=== PATIENT | male | born 1935 | race Caucasian/White ===

== ENCOUNTER 2018-01-03 09:57 | Inpatient (IN) | payer MEDICARE ==
[2018-01-03 10:40] LABS: #Lymphocytes 0.7 thou/uL (1.20-3.40); #Monocytes 0.6 thou/uL (0.11-0.59); #Neutrophils 8.4 thou/uL (1.40-6.50); %Basophils 0.1 % (0.0-1.0); %Eosinophils 0.1 % (0.0-10.0); %Monocytes 6.6 % (0.0-10.0); %Neutrophils 86.2 % (42.0-75.0); Hemoglobin 13.6 g/dL (14.0-18.0); Mean Platelet Volume 9.2 fL (7.4-10.4); Platelet Count 159 thou/uL (130-400); RBC Distribution Width 12.6 % (11.5-14.5); Red Blood Cell (RBC) Count 4.39 mill/uL (4.70-6.10); White Blood Cell (WBC) Count 9.7 thou/uL (4.8-10.8)
[2018-01-03 11:00] LABS: ALT (SGPT) 24 U/L (8-55); AST (SGOT) 33 U/L (5-34); Albumin 4.2 g/dL (3.4-4.8); Alkaline Phosphatase 55 U/L (40-150); Anion Gap 15 mmol/L (10-20); BUN (Urea Nitrogen) 15 mg/dL (8.4-25.7); Bilirubin, Total 1.1 mg/dL (0.2-1.2); Calc. Creatinine Clearance 0 mL/min (70-130); Calcium 9.6 mg/dL (7.8-10.44); Carbon Dioxide 23 mmol/L (23-31); Chloride 97 mmol/L (98-107); Estimated GFR-MDRD 66; Globulin 3.3 g/dL (2.4-3.5); Glucose 157 mg/dL (83-110); Potassium 3.5 mmol/L (3.5-5.1); Protein, Total 7.5 g/dL (5.8-8.1); Sodium 131 mmol/L (136-145)
[2018-01-03] MEDS ORDERED: Acetaminophen 500 MG TAB ONE (11:36)
--- NOTE | 2018-01-03 11:46 | RAD ---
CHEST PA AND LATERAL: History: 82-year-old male with history of cough and fever. FINDINGS: Patchy alveolar parenchymal changes noted in the right lower lobe, evidence for right lower lobe pneu monia. Heart size is normal. The left lung is clear. IMPRESSION: Right lower lobe pneumonia. Follow up for complete clearing suggested. POS: [facility]
[2018-01-03] MEDS ORDERED: Azithromycin 500 MG VIAL ONE (13:19)
[2018-01-03] MEDS ORDERED: cefTRIAXone\\ROCEPHIN 2 GM VIAL ONE (13:19)
[2018-01-03 13:23] LABS: Bilirubin Small (Negative); Blood, Urine Small (Negative); Clarity CLOUDY (Clear); Glucose, Urine (Dipstick) 100 mg/dL (Negative); Leukocyte Trace (Negative); Nitrite Negative (Negative); Protein, Urine (Dipstick) 100 mg/dL (Neg-Trace); Specific Gravity, Urine 1.031 (1.002-1.036); pH, Urine 5.5 (5.0-9.0)
[2018-01-03 13:28] LABS: Bacteria/HPF None Seen HPF (None Seen)
[2018-01-03 13:31] LABS: Pathc Cast-AUWi Flag 7.41 (0-2.49)
[2018-01-03 13:36] LABS: Hyaline Casts/LPF 0-3 HYALINE CAST LPF (0-3 Hyaline); Renal Epithelial None Seen HPF (0-3); Transitional Epithelial NONE SEEN HPF (0-3)
[2018-01-03 13:37] LABS: Manual Microscopic Reviewed? No Path Casts Seen
[2018-01-03] MEDS ORDERED: Ondansetron ODT 4 MG TAB SL PRN (13:42)
[2018-01-03] MEDS ORDERED: Acetaminophen 325 MG TAB PO PRN (13:42)
[2018-01-03] MEDS ORDERED: Ondansetron HCl/PF 4 MG/2 ML Vial IVP PRN (13:42)
[2018-01-03 14:00] VITALS: BMI 23.1
[2018-01-03] MEDS ORDERED: Guaifenesin DM 100-10/5 ML UDCUP PO PRN (14:27)
[2018-01-03] MEDS: Azithromycin 500 MG in Sodium Chloride 0.9% 250 ML 250 ML IVPB SCH (14:47)
[2018-01-03] MEDS: Sodium Chloride 0.9% 1,000 ML IV SCH (15:30)
[2018-01-03] MEDS: Ibuprofen 200 MG TAB PO PRN (17:51)
--- NOTE | 2018-01-03 18:51 | HP ---
REASON FOR ADMISSION: Pneumonia. HISTORY OF PRESENT ILLNESS: The patient gives history of having fever with chills which started early this morning. His measured his temperature, it was 104. On arrival in the ER, had a temperature of 100.2 degrees. He has been having dry coughing spells and did not feel well yesterday and had gone to see Dr. Hawthorne his primary care physician. He apparently had an x-ray done, which was read today. He was told he has right lung pneumonia and was asked to come to the ER. He was given Augmentin, which he took 3 tablets. He has no complaints of urinary urgency or frequency. No complaints of chest pain, palpitation, PND or orthopnea. PAST MEDICAL AND SURGICAL HISTORY: History of left knee replacement, bilateral carpal tunnel surgery, low back pain due to sciatica stress test done [address] Hawthorne[address] office, which was treadmill, stress test was negative as far as patient knows. Completed treatment for hepatitis C 15 years back. CURRENT MEDICATIONS: Augmentin 875 mg p.o. twice daily started from yesterday for pneumonia. ALLERGIES: No known drug allergies. PERSONAL HISTORY: Does not abuse alcohol or drugs, smokes. He is currently smoking half pack a day and has been doing so for nearly 50 years or so. Lives with his . FAMILY HISTORY: Mother lived up to 101 years. Father lived up to 95 years. CODE STATUS. Please CODE STATUS IS FULL. Power of dumper bulk system is his . REVIEW OF SYSTEMS: The following complete review of systems was negative, unless otherwise mentioned in the HPI or below: Constitutional: Weight loss or gain, ability to conduct usual activities. Skin: Rash, itching. Eyes: Double vision, pain. ENT/Mouth: Nose bleeding, neck stiffness, pain, tenderness. Cardiovascular: Palpitations, dyspnea on exertion, orthopnea. Respiratory: Shortness of breath, wheezing, cough, hemoptysis, fever or night sweats. Gastrointestinal: Poor appetite, abdominal pain, heartburn, nausea, vomiting, constipation, or diarrhea. Genitourinary: Urgency, frequency, dysuria, nocturia. Musculoskeletal: Pain, swelling. Neurologic/Psychiatric: Anxiety, depression. Allergy/Immunologic: Skin rash, bleeding tendency. PHYSICAL EXAMINATION: GENERAL: The patient is an 82-year-old male who is currently not in any acute distress. VITAL SIGNS: Blood pressure 104/64, pulse 96 per minute, respiratory rate 18 per minute, temperature 100.2 degrees Fahrenheit, saturating 94% on room air. NECK: Supple, no elevated JVD. HEENT: Eyes: Extraocular muscles intact. Pupils reacting to light. Oral cavity mucous membranes are moist. No exudates or congestion. CARDIOVASCULAR: S1, S2 heard. Regular rhythm. RESPIRATORY: Air entry 1+ bilaterally. No rales or rhonchi. ABDOMEN: Soft, bowel sounds heard. No tenderness, rigidity or guarding. EXTREMITIES: No peripheral edema or calf tenderness. VASCULAR SYSTEM: Peripheral pulses 1+ bilateral, no ischemic ulcerations or gangrene. CENTRAL NERVOUS SYSTEM: No gross focal deficits seen. Patient is alert, awake , and oriented well. PSYCHIATRIC: The patient's mood is euthymic. No hallucinations or delusions. LABORATORY AND X-RAY FINDINGS: Chest x-ray done shows right lower lobe pneumonia. UA shows trace leukoesterase with 4-6 wbc's. Sodium 131, BUN 15, creatinine 1.0, glucose 157. White count of 9, H&H 13 and 40, platelet count is 159, with 86% neutrophils. CLINICAL IMPRESSION AND PLAN: The patient will be admitted to medical floor for right lung pneumonia. He will be on ceftriaxone and Zithromax. The patient also has chronic history of smoking for nearly 50 years or more. He will be on DuoNebs q.6 hourly and normal saline at 60 mL per hour for 24 hours. We will add Pepcid 20 mg daily. The patient likely needs 4-5 doses of IV antibiotics prior to going home. He probably will need outpatient appointment with Pulmonology in view of his chronic smoking habit and right lung pneumonia for followup x-ray to see for complete resolution if not further workup towards the same. MTDD
[2018-01-03] MEDS: Docusate 100 MG CAP PO SCH (20:47)
[2018-01-04] MEDS: Acetaminophen 325 MG TAB PO PRN ×4 (00:43→17:29)
[2018-01-04 05:29] LABS: #Lymphocytes 0.5 thou/uL (1.20-3.40); #Monocytes 0.6 thou/uL (0.11-0.59); #Neutrophils 7.7 thou/uL (1.40-6.50); %Eosinophils 0.1 % (0.0-10.0); %Lymphocytes 5.7 % (21.0-51.0); %Monocytes 6.5 % (0.0-10.0); %Neutrophils 87.6 % (42.0-75.0); Hemoglobin 12.2 g/dL (14.0-18.0); Mean Corpuscular HGB CONC 34.4 g/dL (32.0-36.0); Mean Corpuscular Hemoglobin 31.6 pg (27.0-31.0); Mean Corpuscular Volume 91.8 fl (80.0-94.0); Mean Platelet Volume 9.2 fL (7.4-10.4); Platelet Count 153 thou/uL (130-400); RBC Distribution Width 12.9 % (11.5-14.5); Red Blood Cell (RBC) Count 3.87 mill/uL (4.70-6.10); White Blood Cell (WBC) Count 8.8 thou/uL (4.8-10.8)
[2018-01-04 05:52] LABS: Anion Gap 10 mmol/L (10-20); BUN (Urea Nitrogen) 13 mg/dL (8.4-25.7); Calc. Creatinine Clearance 71 mL/min (70-130); Calcium 8.9 mg/dL (7.8-10.44); Carbon Dioxide 26 mmol/L (23-31); Chloride 104 mmol/L (98-107); Estimated GFR-MDRD Greater than 90; Glucose 132 mg/dL (83-110); Potassium 3.6 mmol/L (3.5-5.1); Sodium 136 mmol/L (136-145)
[2018-01-04] MEDS: Sodium Chloride 0.9% 1,000 ML IV SCH (08:11)
[2018-01-04] MEDS: Enoxaparin Sodium 40 MG/0.4 ML SYRINGE SC SCH (08:33)
[2018-01-04] MEDS: Docusate 100 MG CAP PO SCH ×2 (08:33→20:34)
[2018-01-04] MEDS ORDERED: Famotidine 20 MG TAB PO SCH ×2 (09:00→21:00)
[2018-01-04] MEDS ORDERED: Prevnar 13-Val Conj/PF 0.5 ML SYRINGE IM ONE (09:00)
--- NOTE | 2018-01-04 10:41 | CT ---
CHEST CT WITHOUT COTNRAST: HISTORY: Pain. Fever. Smoker. Evaluate for mass. COMPARISON: None. CORRELATION: Chest radiograph 01/03/18. TECHNIQUE: Noncontrast chest CT is performed in the axial plane. Coronal reformatted images are submitted for i nterpretation. FINDINGS: Limited evaluation of the mediastinum due to the lack of IV contrast. No mass, lymphadenopathy, or h ematoma. Heart size is within normal limits. No significant pericardial fluid. Visualized aorta roy s a normal caliber. No periaortic fat stranding. The visualized upper solid organs are unremarkable. No paraspinal masses or hematoma. Trachea and central bronchi are patent. Adequate aeration of the left and right upper lobes. Middle lobe is also adequately aerated. Linear opacity in the left lower lobe due to scar or atelectasis. Ground-glass opacity with consolidation in the right lower lobe. Air bronchograms are present. Pne umonia is favored. Given the patient's history, followup imaging to ensure resolution is recommended . The area of consolidation measures 7.5 x 5.6 cm. No pneumothorax. IMPRESSION: Right lower lobe consolidation with air bronchograms, favored to be due to pneumonia until proven oth erwise. Continued surveillance is recommended. Additional ground-glass opacities peripheral to the area of consolidation likely represent edema/infiltrate. POS: [facility]
--- NOTE | 2018-01-04 11:02 | PDOC.PN ---
- Subjective Encounter Start Date: 01/04/18 Encounter Start Time: 09:30 Subjective: breathing better, no sob -: has cough+ mostly dry - Objective Resuscitation Status: Resuscitation Status FULL:Full Resuscitation MAR Reviewed: Yes Vital Signs & Weight: Vital Signs (12 hours) Temp Pulse Resp BP Pulse Ox 01/04/18 09:15 98.8 F 01/04/18 08:00 102 F H 100 16 93 L 01/04/18 07:39 102 F H 100 16 129/65 93 L 01/04/18 06:13 80 14 95 01/04/18 04:00 98.9 F 80 20 102/65 95 01/04/18 00:45 99.5 F 01/04/18 00:23 88 12 01/04/18 00:00 99.7 F H 92 20 147/72 H 96 Weight Weight 152 lb 4.8 oz I&O: 01/03/18 01/04/18 01/05/18 06:59 06:59 06:59 Intake Total 2121 Output Total 400 Balance 1721 Result Diagrams: 01/04/18 03:40 01/04/18 03:40 Phys Exam - Physical Examination HEENT: PERRLA, moist MMs Neck: no JVD, supple Respiratory: no wheezing, no rales Cardiovascular: RRR, no significant murmur Gastrointestinal: soft, non-tender, positive bowel sounds Musculoskeletal: no edema, pulses present Neurological: non-focal, moves all 4 limbs Psychiatric: normal affect, A&O x 3 Dx/Plan (1) PNA (pneumonia) Code(s): J18.9 - PNEUMONIA, UNSPECIFIED ORGANISM Status: Acute Qualifiers: Laterality: right Lung location: lower lobe of lung Comment: cap (2) COPD (chronic obstructive pulmonary disease) Status: Chronic Qualifiers: COPD type: chronic bronchitis Chronic bronchitis type: unspecified Qualified Code(s): J42 - Unspecified chronic bronchitis (3) Tobacco abuse Code(s): Z72.0 - TOBACCO USE Status: Chronic (4) Chronic back pain Code(s): M54.9 - DORSALGIA, UNSPECIFIED; G89.29 - OTHER CHRONIC PAIN Status: Chronic Qualifiers: Back pain location: low back pain - Plan is on ceftriaxone and zithromax -: nebs prn -: had tmax of 102 last 24hrs -: CT chest results reviewed * . Review of Systems - Medications/Allergies Allergies/Adverse Reactions: Allergies Allergy/AdvReac Type Severity Reaction Status Date / Time No Known Allergies Allergy Unverified 05/10/15 12:13 Medications: Current Medications Acetaminophen (Tylenol) 650 mg PO Q4H PRN PRN Reason: Headache/Fever or Pain Last Admin: 01/04/18 08:33 Dose: 650 mg Hydrocodone Bitart/Acetaminophen (Bennett 7.5/325) 1 tab PO Q6HR PRN PRN Reason: Moderate Pain (4-6) Albuterol/Ipratropium (Duoneb) 3 ml NEB [id number] [facility] Last Admin: 01/04/18 06:13 Dose: 3 ml Aspirin (Aspirin Chewable) 81 mg PO DAILY [facility] Last Admin: 01/04/18 08:33 Dose: 81 mg Docusate Sodium (Colace) 100 mg PO BID [facility] Last Admin: 01/04/18 08:33 Dose: 100 mg Enoxaparin Sodium (Lovenox) 40 mg SC 0900 [facility] Last Admin: 01/04/18 08:33 Dose: 40 mg Famotidine (Pepcid) 20 mg PO BID [facility] Guaifenesin/Dextromethorphan (Robitussin Dm) 15 ml PO Q4H PRN PRN Reason: Cough Azithromycin 500 mg/ Sodium (Chloride) 250 mls @ 250 mls/hr IVPB Q24HR [facility] Last Admin: 01/03/18 14:47 Dose: Not Given Ceftriaxone Sodium 2 gm/ (Sodium Chloride) 100 mls @ 200 mls/hr IVPB Q24HR [facility] Sodium Chloride (Normal Saline 0.9%) 1,000 mls @ 60 mls/hr IV [id number] [facility] Last Admin: 01/04/18 08:11 Dose: 1,000 mls Ibuprofen (Motrin) 400 mg PO TID PRN PRN Reason: fever >100 Last Admin: 01/03/18 17:51 Dose: 400 mg
[2018-01-04] MEDS: cefTRIAXone\\ROCEPHIN 2 GM in Sodium Chloride 0.9% 100 ML IVPB SCH (12:47)
[2018-01-04] MEDS: Azithromycin 500 MG in Sodium Chloride 0.9% 250 ML 250 ML IVPB SCH (14:55)
[2018-01-04] MEDS ORDERED: Sodium Chloride 0.9% 1,000 ML IV SCH (17:05)
[2018-01-04] MEDS: Ibuprofen 200 MG TAB PO PRN (19:04)
[2018-01-04] MEDS: HYDROcodone/Acetaminophen 7.5/325 mg Tablet PO PRN (20:37)
[2018-01-04 20:39] LABS: Legionella Urinary Ag POSITIVE (Negative); Strep pneumo Urine Ag NEGATIVE (NEGATIVE)
--- NOTE | 2018-01-04 22:23 | CON ---
DATE OF CONSULTATION: 01/04/2018 SERVICE: Pulmonary Medicine. REASON FOR CONSULTATION: Pneumonia. HISTORY OF PRESENT ILLNESS: The patient is an 82-year-old Hebrew male with past medical history significant for essentially nothing. He is in his usual state of health until roughly 5 days prior to admission. On Saturday, he woke up and everything was fine, but as the day progressed, things started feeling a little bit off. He did not have any specific way of feeling bad, but just knew that he felt a little lousy. As the week progressed, he started having onset of some pleuritic type of chest discomfort, cough, and fevers that went up to 104. His primary care physician obtained a chest x-ray. It was abnormal, so he was started on some Augmentin. He took a total of 3 pills. He was also told to go to the emergency department. In the emergency department, chest x- ray confirmed the pneumonia. He was started on appropriate antibiotics. Over the last 24 hours, the patient has had a significant improvement in symptoms. His fever profile is improving. He denies any current fevers, chills, nausea, vomiting, or chest discomfort. He denies having any shortness of breath. He has a cough, but he is not bringing any sputum up. Otherwise, he has been in excellent health. He only has a little bit of sciatic discomfort, for which he takes p.r.n. [place] for. He typically needs a dose no more than 2-3 times per week. He denies having any significant weight changes, hemoptysis, or night sweats prior to 1 week ago. PAST MEDICAL HISTORY: 1. Sciatic nerve pain. 2. History of chronic hepatitis C, status post therapy 15 years ago. PAST SURGICAL HISTORY: 1. Carpal tunnel surgery, bilateral. 2. Left knee replacement. SOCIAL HISTORY: He drinks alcohol occasionally. He has a greater than 50-pack- year history of smoking, but has decreased that habit over the last several years and discontinued the habit altogether roughly one 1 month ago. He did not have any specific reason to quit smoking, but just decided that at this point, he did not want that to be part of his life any longer. He currently lives with his . He denies any illicit drugs. He has no exposure to chemicals, dust, asbestos, or tuberculosis. He owns a local restaurant. FAMILY HISTORY: Noncontributory. ALLERGIES: No known drug allergies. MEDICATIONS: List of his inpatient medications were reviewed. Very small updates were made. REVIEW OF SYSTEMS: General, head, ears, eyes, nose, throat, cardiovascular, respiratory, GI, , musculoskeletal, neurologic, and skin is negative except as mentioned in HPI. PHYSICAL EXAMINATION: VITAL SIGNS: Afebrile currently with a temperature of 99.7. His temperature profile seems to be improving as on presentation, he had a 104 fever and the spikes are decreasing. Pulse 81, blood pressure 106/68, respirations 16, saturation 94% on room air. GENERAL: The patient is awake and alert, in no apparent distress. LUNGS: Decent air entry. I do not appreciate rhonchi. There is no prolonged expiratory phase, wheezing, rhonchi, or crackles. HEART: Normal rate, regular. ABDOMEN: Soft, nontender, nondistended. Bowel sounds are positive. MUSCULOSKELETAL: No cyanosis or clubbing. There is no pitting in the bilateral lower extremities. NEUROLOGIC: Grossly nonfocal. LABORATORY DATA: WBC 8.8, hemoglobin 12.2, platelets 153,000. Neutrophil count is 86%. Basic metabolic profile and liver function studies are unremarkable. Lactate is negative. Potassium is 3.6. Urinalysis is positive for minimal glycosuria and proteinuria. Ketones are also present. There is not many white blood cells, but there are some red blood cells. Trace leukocyte esterase is present, but nitrites are unremarkable. Blood cultures x2 remain negative. IMAGING: CT of the chest demonstrates a right lower lobe pulmonary infiltrate. It is fairly dense at one point. I see air bronchograms, but some of it has paucity of air bronchograms giving it a possibility of having underlying mass. No evidence of significant mediastinal lymphadenopathy is present on this noncontrasted film. ASSESSMENT: 1. Community-acquired pneumonia. 2. Sepsis. 3. Proteinuria, minimal. 4. Hematuria, minimal DISCUSSION AND PLAN: The patient is on appropriate coverage for community- acquired organisms. This will be continued until he breaks his fever profile. After that, we will change him over to an equal p.o. regimen. He will get a chest x-ray on the day of discharge as there was a very small rim of pleural effusion. I would like to make certain that this does not turn into a more aggressive inflammatory condition. Ultimately, he will need a repeat CT scan in 6 weeks. He is going to [place] from January until early February. This will be perfect for a timeline. When he returns from [place], we will need to get the repeat CT scan. I will see him in clinic at that time. I would like to repeat a urinalysis in the outpatient setting to make certain that his hematuria resolves. Pulmonary will continue to follow along. 70 minutes have been devoted to this patient in various activities. I personally reviewed all imaging studies and laboratory data noted within this document. For fifty percent of this time, I was interacting with the patient at the bedside or coordinating care with the care team. For the remainder of the time I was immediately available to the patient in the hospital unit. MARAH
[2018-01-05] MEDS: Melatonin 3 MG TAB PO PRN ×2 (02:09→20:42)
[2018-01-05] MEDS: Acetaminophen 325 MG TAB PO PRN ×2 (07:39→16:48)
[2018-01-05] MEDS: Enoxaparin Sodium 40 MG/0.4 ML SYRINGE SC SCH (07:39)
[2018-01-05] MEDS: Docusate 100 MG CAP PO SCH ×2 (07:39→20:42)
--- NOTE | 2018-01-05 10:52 | PDOC.PN ---
- Subjective Encounter Start Date: 01/05/18 Encounter Start Time: 08:40 Subjective: is able to bring up some sputum now -: no sob, fever is better - Objective Resuscitation Status: Resuscitation Status FULL:Full Resuscitation MAR Reviewed: Yes Vital Signs & Weight: Vital Signs (12 hours) Temp Pulse Resp BP BP Pulse Ox 01/05/18 07:50 99.4 F 89 18 94 L 01/05/18 07:18 99.4 F 89 18 128/74 94 L 01/05/18 06:06 75 14 96 01/05/18 04:56 97.8 F 84 20 126/82 96 01/05/18 04:15 98.4 F 88 16 133/69 95 01/05/18 00:17 67 12 01/05/18 00:00 98.1 F 67 20 120/73 95 Weight Admit Weight 152 lb Weight 152 lb 4.8 oz I&O: 01/04/18 01/05/18 01/06/18 06:59 06:59 06:59 Intake Total 2121 3020 Output Total 400 200 Balance 1721 2820 Result Diagrams: 01/04/18 03:40 01/04/18 03:40 Phys Exam - Physical Examination HEENT: PERRLA, moist MMs Neck: no JVD, supple Respiratory: no wheezing, no rales Cardiovascular: RRR, no significant murmur Gastrointestinal: soft, non-tender, positive bowel sounds Musculoskeletal: no edema, pulses present Neurological: non-focal, moves all 4 limbs Psychiatric: normal affect, A&O x 3 Dx/Plan (1) PNA (pneumonia) Code(s): J18.9 - PNEUMONIA, UNSPECIFIED ORGANISM Status: Acute Qualifiers: Laterality: right Lung location: lower lobe of lung Comment: cap (2) COPD (chronic obstructive pulmonary disease) Status: Chronic Qualifiers: COPD type: chronic bronchitis Chronic bronchitis type: unspecified Qualified Code(s): J42 - Unspecified chronic bronchitis (3) Tobacco abuse Code(s): Z72.0 - TOBACCO USE Status: Chronic (4) Chronic back pain Code(s): M54.9 - DORSALGIA, UNSPECIFIED; G89.29 - OTHER CHRONIC PAIN Status: Chronic Qualifiers: Back pain location: low back pain - Plan is on ceftriaxone and zithromax -: duonebs -: tmax of 99 last 24hrs -: legionella Ag+ in urine -: to amb as tolerated, likely dc plan in am if stable * . Review of Systems - Medications/Allergies Allergies/Adverse Reactions: Allergies Allergy/AdvReac Type Severity Reaction Status Date / Time No Known Allergies Allergy Unverified 05/10/15 12:13 Medications: Current Medications Acetaminophen (Tylenol) 650 mg PO Q4H PRN PRN Reason: Headache/Fever or Pain Last Admin: 01/05/18 07:39 Dose: 650 mg Hydrocodone Bitart/Acetaminophen ([place] 7.5/325) 1 tab PO Q6HR PRN PRN Reason: Moderate Pain (4-6) Last Admin: 01/04/18 20:37 Dose: 1 tab Albuterol/Ipratropium (Duoneb) 3 ml NEB [id number] [facility] Last Admin: 01/05/18 06:06 Dose: 3 ml Aspirin (Aspirin Chewable) 81 mg PO DAILY [facility] Last Admin: 01/05/18 07:39 Dose: 81 mg Docusate Sodium (Colace) 100 mg PO BID [facility] Last Admin: 01/05/18 07:39 Dose: Not Given Enoxaparin Sodium (Lovenox) 40 mg SC 0900 [facility] Last Admin: 01/05/18 07:39 Dose: 40 mg Azithromycin 500 mg/ Sodium (Chloride) 250 mls @ 250 mls/hr IVPB Q24HR [facility] Last Admin: 01/04/18 14:55 Dose: 250 mls Ceftriaxone Sodium 2 gm/ (Sodium Chloride) 100 mls @ 200 mls/hr IVPB Q24HR [facility] Last Admin: 01/04/18 12:47 Dose: 100 mls Sodium Chloride (Normal Saline 0.9%) 1,000 mls @ 0 mls/hr IV .Q0M [facility] PRN Reason: KVO Ibuprofen (Motrin) 400 mg PO TID PRN PRN Reason: fever >100 Last Admin: 01/04/18 19:04 Dose: 400 mg Melatonin (Melatonin) 3 mg PO HS PRN PRN Reason: Insomnia Last Admin: 01/05/18 02:09 Dose: 3 mg Pantoprazole Sodium (Protonix) 40 mg PO DAILY [facility] Last Admin: 01/05/18 09:48 Dose: 40 mg Sodium Chloride (Flush - Normal Saline) 10 ml IVF Q12HR [facility] Last Admin: 01/05/18 08:06 Dose: Not Given Sodium Chloride (Flush - Normal Saline) 10 ml IVF PRN PRN PRN Reason: Saline Flush
--- NOTE | 2018-01-05 12:35 | PRG ---
DATE OF SERVICE: 01/05/2018 SERVICE: Pulmonary Medicine. INTERVAL HISTORY: The patient is doing fantastic from a respiratory standpoint. He denies any chest pain, nausea, vomiting, shortness of breath. His appetite is coming back to him. His fever profile has improved. He had a little fever yesterday evening shortly after I left him. PHYSICAL EXAMINATION: VITAL SIGNS: Currently afebrile with temperature of 99.4, pulse 89, blood pressure 128/74, respirations 18, and saturation 96% on room air. GENERAL: The patient is awake, alert, no apparent distress. LUNGS: Decent air entry. There is no prolonged expiratory phase or wheezing. I do not appreciate crackles or rhonchi. HEART: Normal rate, regular. ABDOMEN: Soft, nontender, and nondistended. Bowel sounds are positive. MUSCULOSKELETAL: No cyanosis or clubbing. No pitting in the bilateral lower extremities. NEUROLOGIC: Grossly nonfocal. LABORATORY DATA: Urine legionella antigen is positive. Strep pneumonia antigen is unremarkable. ASSESSMENT: 1. Community-acquired pneumonia secondary to Legionella. 2. Sepsis. 3. Proteinuria, minimal. 4. Hematuria, minimal. PLAN: We will convert him over to p.o. medications starting tomorrow morning since his temperature profile is clearly improving. He will get one more IV dose today. I will repeat a chest x-ray tomorrow morning. If there is no pleural effusion and he is clinically improved, he will be stable for discharge from the hospital. I would like for him to have a total duration of 10 days of the azithromycin because of the severity/density of the infiltrate. He can have a total of 5 days of penicillin/cephalosporin combination. He will need to inspect his equipment that has water/ice to ensure there is no colonization with Legionella. He will need to follow up with me in clinic in 6 weeks with a preclinic CT of the chest and urinalysis, so that we can prove that the proteinuria, hematuria, and infiltrate have resolved. MARAH
[2018-01-05] MEDS: cefTRIAXone\\ROCEPHIN 2 GM in Sodium Chloride 0.9% 100 ML IVPB SCH (13:09)
[2018-01-05] MEDS: Azithromycin 500 MG in Sodium Chloride 0.9% 250 ML 250 ML IVPB SCH (14:37)
[2018-01-05] MEDS: Cefdinir 300 MG CAP PO SCH (20:42)
[2018-01-06] MEDS: HYDROcodone/Acetaminophen 7.5/325 mg Tablet PO PRN (01:37)
[2018-01-06] MEDS: Cefdinir 300 MG CAP PO SCH (08:08)
[2018-01-06] MEDS: Docusate 100 MG CAP PO SCH (08:09)
[2018-01-06] MEDS: Enoxaparin Sodium 40 MG/0.4 ML SYRINGE SC SCH (08:10)
[2018-01-06] MEDS ORDERED: Azithromycin 250 MG TAB PO SCH (09:00)
[2018-01-06 09:42] LABS: Mean Corpuscular HGB CONC 34.1 g/dL (32.0-36.0); Mean Corpuscular Hemoglobin 31.1 pg (27.0-31.0); Mean Corpuscular Volume 91.2 fl (80.0-94.0); Mean Platelet Volume 8.6 fL (7.4-10.4); Platelet Count 230 thou/uL (130-400); RBC Distribution Width 13.2 % (11.5-14.5); Red Blood Cell (RBC) Count 3.87 mill/uL (4.70-6.10); White Blood Cell (WBC) Count 7.5 thou/uL (4.8-10.8)
[2018-01-06 09:43] LABS: Anion Gap 13 mmol/L (10-20); BUN (Urea Nitrogen) 7 mg/dL (8.4-25.7); Calc. Creatinine Clearance 85 mL/min (70-130); Calcium 9.3 mg/dL (7.8-10.44); Carbon Dioxide 21 mmol/L (23-31); Chloride 104 mmol/L (98-107); Estimated GFR-MDRD Greater than 90; Glucose 114 mg/dL (83-110); Potassium 3.4 mmol/L (3.5-5.1); Sodium 135 mmol/L (136-145)
--- NOTE | 2018-01-06 10:03 | RAD ---
TWO VIEWS CHEST: Comparison: 01-03-18 History: Follow up infiltrate. FINDINGS: Worsening opacification of the right lower lobe. Stable aeration left lung. Stable configuration of c ardiac silhouette. IMPRESSION: Worsening right lower lobe pneumonia. POS: [facility]
[2018-01-06 11:05] VITALS: BP 157/80; TEMP 98.6
[2018-01-06 12:14] LABS: Band 16 % (5-11); Lymphocytes 14 % (21-51); MDiff Complete? YES; Monocytes 9 % (0-10); Neutrophil 58 % (42-75); PLT Morphology Comment Appears Adequate; Polychromasia SLIGHT = 2-3 cells (100X) (0-2/hpf); Reactive Lymphocytes 3 % (0-10)
--- NOTE | 2018-01-06 12:29 | PDOC.EVN ---
Event Note - Event Note Event Note: DC SUMMARY #[id number]
--- NOTE | 2018-01-06 15:38 | PRG ---
DATE OF SERVICE: 01/06/2018 SUBJECTIVE: Mr. Thrasher says he is ready to go home. He looks actually quite well. OBJECTIVE: VITAL SIGNS: He is afebrile, heart rate 81, respiratory rate 16, oximetry is 93 on room air. LUNGS: Clear. HEART: Regular rhythm. ABDOMEN: Soft. Chest radiograph shows ongoing infiltrate in his right lower lobe. He has only been here 2 days, so I would expect his infiltrate to get worse before he got better. IMPRESSION: Pneumonia with a positive Legionella pneumophila and urinary antigen. Plan per Dr. Pollo crump's recommendations and has noted yesterday. He is stable to be discharged from the hospital. Fro m my perspective, he will need to follow closely with Dr. Ramos as per his recommendation and has n oted yesterday.
--- NOTE | 2018-01-06 23:00 | DIS ---
DATE OF ADMISSION: 01/03/2018 DATE OF DISCHARGE: 01/06/2018 ADMITTING DIAGNOSES: 1. Pneumonia. 2. History of osteoarthritis. 3. History of hypertension. 4. Back pain. DISCHARGE DIAGNOSES: 1. Pneumonia, stable. 2. History of osteoarthritis. 3. History of back pain, stable. HOSPITAL COURSE: This is an 82-year-old male who was admitted to Internal Medicine team after having fevers of 104 degrees at home. After arrival in the ER, the patient apparently had fevers of 100.2. The patient was diagnosed with right lobar pneumonia, admitted to Internal Medicine team and also f ollowed by pulmonary physicians. The patient was started on IV antibiotics during his stay in the [facility]. The patient, of note, when admitted and did not have a high white count; however, did have f saroj. Patient's rest of her laboratory workup was within acceptable limits. The patient's UA did i ndicate that he had a significant amount of protein and glucosuria as well as some bilirubin. The connie hunt Legionella pneumophila antibody antigen was positive. The patient was started on appropriate c ourse of regimen with antibiotics, followed very closely by Pulmonary and Internal Medicine team. At point in time of discharge, the patient was deemed stable for discharge from a Pulmonary as well as Internal Medicine perspective. Given prescriptions for azithromycin 500 mg daily to be taken for 10 days as well as Omnicef to be taken for a total of 3 more days. [facility] would have gotten a total of 5-day therapy. The patient was to follow up with his P CP and Pulmonary doctor within 5-7 days. The patient stated that he was ready to go home. The patie nt was cleared from Pulmonary Medicine for discharge, and case and plan was discussed with family as well as the patient at length. The patient was made aware that he did have a fever at 5 p.m. the day prior to discharge and stated that he still wanted to go home. DISPOSITION: Home. CONDITION: Stable. PROGNOSIS: Guarded. ACTIVITY: As tolerated with assistance as appropriate. MEDICATIONS: See MAR. Prescriptions given for azithromycin and Omnicef. DIET: Low fat, low calorie, high fiber diet. Again, case and plan discussed with the patient and family at length. They understand and agreed wit h the above plan.
--- NOTE | 2018-01-08 17:02 | PQF ---
LAINA HANSON VINAYA KUMAR MD [id number] CLINICAL DOCUMENTATION CLARIFICATION FORM: POST DISCHARGE Addendum to original discharge summary date: ____ Late entry note date: __ DATE: 01/08/18 ATTN: Please exercise your independent, professional judgment in responding to the clarification form. Clinical indicators are provided on the bottom of this form for your review Please check appropriate box(es): [ x ] Sepsis due to: (Pna, UTI, gangrenous gall bladder, etc.) pna Due to: [ ] Device (please specify) [ ] Implant [ ] Graft [ ] Infusion [ ] SIRS due to non-infectious process (please specify etiology) [ ] with organ dysfunction [ ] without organ dysfunction [ ] Severe sepsis with acute organ dysfunction of: (Examples: respiratory failure, encephalopathy, acute kidney failure, other) [ ] Septic Shock [ ] Localized infection without sepsis [ ] Ruled out [ ] Other diagnosis [ ] Unable to determine In addition, please specify: Present on Admission (POA): [ ] Yes [ ] No [ ] Unable to determine For continuity of documentation, please document condition throughout progress notes and discharge summary. Thank You. CLINICAL INDICATORS - SIGNS / SYMPTOMS / LABS Fever or hypothermia (<96.8 F/36 C or > 100.4 F/38C) WBC count (>12,000/mm^4 or <4000/mm^3 or 10% neuts, 10% bands) RISK FACTORS Pneumonia TREATMENTS: IV antibiotics - broad spectrum MTDD
== END 2018-01-06 12:42 | disposition home or self-care (01) | DRG 871 ==
LOC: ERS 09:57 → T4-A 12:21
PROVIDERS: ADMIT Internal Medicine; ATTEND Internal Medicine
DX: A41.9 Sepsis, unspecified organism (principal); J18.9 Pneumonia, unspecified organism; I10 Essential (primary) hypertension; Z79.2 Long term (current) use of antibiotics; F17.210 Nicotine dependence, cigarettes, uncomplicated; Z96.651 Presence of right artificial knee joint; M54.30 Sciatica, unspecified side; R31.9 Hematuria, unspecified; R80.9 Proteinuria, unspecified; J44.9 Chronic obstructive pulmonary disease, unspecified
CPT/HCPCS: 36415; 71046; 71250; 80048; 80053; 81003; 81015; 83605; 85007; 85025; 85027; 87040; 87899; 94640; 94760; 96361; 96365; A4216; J0456; J0696; J1650; J7050; J7620

== ENCOUNTER 2018-02-19 09:07 | Outpatient (CLI) | payer MEDICARE ==
[2018-02-19 09:26] LABS: Estimated GFR-MDRD - POC Greater than 90
--- NOTE | 2018-02-19 11:26 | CT ---
CONTRAST ENHANCED CT CHEST: HISTORY: Patient with pneumonia in December 2017. Not getting clinically better. TECHNIQUE: A contrast enhanced CT of the chest is performed. FINDINGS: The area of consolidation in the right lower lobe has completely resolved. Some minimal of scarring remain. No definite evidence of air space opacity is seen. A small hiatal hernia is seen. No evidence of mediastinal, axillary, or hilar lymphadenopathy is seen. A cortical cyst is seen in t he right kidney. A small hiatal hernia is seen. IMPRESSION: Resolved right lower lobe pneumonia. POS: [facility]
[2018-02-19] MEDS ORDERED: Iopamidol 370 76% 100 ML VIAL ONE (12:53)
== END 2018-02-19 09:08 | disposition home or self-care (01) ==
LOC: CT 09:07
PROVIDERS: ATTEND Internal Medicine
DX: R91.8 Other nonspecific abnormal finding of lung field (principal)
CPT/HCPCS: 71260; 82565

== ENCOUNTER 2018-09-09 14:38 | Inpatient (IN) | payer MEDICARE ==
[~2018-09-09 14:38] MED LIST: ISOVUE-370 76%-LOCM 1 ML ONE
[2018-09-09 15:06] LABS: #Basophils 0.1 thou/uL (0.0-0.2); #Eosinphils 0.1 thou/uL (0.0-0.7); #Lymphocytes 1.8 thou/uL (1.20-3.40); #Monocytes 0.6 thou/uL (0.11-0.59); #Neutrophils 4.4 thou/uL (1.40-6.50); %Basophils 0.9 % (0.0-1.0); %Eosinophils 1.3 % (0.0-10.0); %Lymphocytes 25.6 % (21.0-51.0); %Monocytes 8.8 % (0.0-10.0); %Neutrophils 63.3 % (42.0-75.0); Hemoglobin 13.2 g/dL (14.0-18.0); Mean Corpuscular HGB CONC 33.1 g/dL (32.0-36.0); Mean Corpuscular Hemoglobin 30.3 pg (27.0-31.0); Mean Corpuscular Volume 91.4 fL (78.0-98.0); Mean Platelet Volume 9.6 fL (7.4-10.4); Platelet Count 181 thou/uL (130-400); RBC Distribution Width 13.1 % (11.5-14.5); Red Blood Cell (RBC) Count 4.35 mill/uL (4.70-6.10); White Blood Cell (WBC) Count 6.9 thou/uL (4.8-10.8)
[2018-09-09] MEDS ORDERED: Adenosine 6 MG/2 ML VIAL ONE (15:10)
[2018-09-09] MEDS ORDERED: Diltiazem 125 MG/25 ML ONE (15:24)
[2018-09-09 15:32] LABS: ALT (SGPT) 16 U/L (8-55); AST (SGOT) 20 U/L (5-34); Albumin 4.7 g/dL (3.4-4.8); Alkaline Phosphatase 48 U/L (40-150); Anion Gap 12 mmol/L (10-20); BUN (Urea Nitrogen) 25 mg/dL (8.4-25.7); Bilirubin, Total 0.9 mg/dL (0.2-1.2); CK (CPK) 155 U/L (30-200); Calc. Creatinine Clearance 0 mL/min (70-130); Carbon Dioxide 24 mmol/L (23-31); Chloride 109 mmol/L (98-107); Estimated GFR-MDRD 65; Globulin 2.7 g/dL (2.4-3.5); Glucose 107 mg/dL (83-110); Lipase 31 U/L (8-78); Potassium 4.4 mmol/L (3.5-5.1); Protein, Total 7.4 g/dL (5.8-8.1); Sodium 141 mmol/L (136-145)
[2018-09-09 15:51] LABS: CKMB 3.8 ng/mL (0-6.6)
--- NOTE | 2018-09-09 15:57 | RAD ---
PORTABLE AP CHEST RADIOGRAPH: Date: 09-09-18 History: Irregular heart rate. New onset atrial fibrillation. Comparison: 01-06-18 FINDINGS: Cardiac silhouette is magnified by projection. Pulmonary vasculature is within normal limits. Linear densities are seen at the left lung base likely attributable to atelectasis and there is elevation of the left hemidiaphragm. Parenchymal opacity seen throughout lung base on prior chest x-ray has resol gage and only minimal linear densities are now present which may relate to either mild scarring or ate lectasis. Bilateral glenohumeral osteoarthropathy is noted. There is also bilateral acromioclavicular joint osteoarthritis. Vascular calcification seen in the thoracic aorta. IMPRESSION: 1. Elevation left hemidiaphragm with blunting of the left lung base. 2. Minimal linear scarring versus atelectasis of the right lung base. POS: [facility]
[2018-09-09] MEDS ORDERED: Enoxaparin Sodium 80 MG/0.8 ML SYRINGE ONE (16:24)
--- NOTE | 2018-09-09 18:08 | CT ---
CT ANGIOGRAM THORAX WITH IV CONTRAST AND 3D RECONSTRUCTIONS: Date: 09/09/18 HISTORY: Shortness of breath with onset of symptoms for 2 days. Dyspnea. Associated dry cough, congestion, and nausea. COMPARISON: 02/19/18. FINDINGS: There is a small filling defect seen within a left upper lobe segmental pulmonary artery. This is sug gestive of a pulmonary embolus. No additional filling defects are appreciated within the pulmonary ar teries bilaterally. The thoracic aorta is not opacified as this study was tailored for evaluation of the pulmonary arteri es. However, the thoracic aorta is normal in caliber. Vascular calcifications are seen in the thoraci c aorta, as well as involving the coronary arteries. The cardiac silhouette is mildly enlarged. There is a small right and tiny left pleural effusion with associated passive atelectasis. There is a small nodular density seen within the right upper lobe (image 44, series 3), as well as a smaller nodular density seen within the right middle lobe. These findings could be related to focal a reas of pneumonitis, but follow-up is advised to ensure resolution. There are scattered areas of atel ectasis within the lungs. No enlarged lymph nodes are seen by CT size criteria. Hypodense superior pole right renal lesion is again seen, likely related to a renal cyst. There is a mildly increased density exophytic lesion at the posterior aspect of the superior pole of the left ki dney, which is stable in size compared to the prior exam. Additional tiny subcentimeter hypodense les ions seen in the posterior aspect of the mid portion of the left kidney as well. A small hiatal hernia is present. Degenerative changes are seen in the spine. There is mild right convex curvature present. IMPRESSION: 1. Small pulmonary embolus involving a distal segmental left upper lobe pulmonary artery. No additio nal filling defects are seen within the pulmonary arteries bilaterally to suggest additional pulmonar y emboli. 2. Nodular parenchymal densities in the right upper lobe, as well as right middle lobe, which may be related to focal areas of pneumonitis. However, follow-up is recommended to ensure resolution. 3. Mild cardiomegaly. 4. Small right and tiny left pleural effusions with associated passive atelectasis. 5. Vascular calcifications in the thoracic aorta and coronary arteries. Above findings discussed with Dr. Andrade in the emergency department on 09/09/18 at 1606 hours. CODE CR. POS: [facility]
[2018-09-09] MEDS ORDERED: hydrALAZINE 20 MG/ML VIAL SLOW IVP PRN (18:31)
[2018-09-09] MEDS ORDERED: HYDROcodone/Acetaminophen 5/325 mg Tablet PO PRN (18:31)
[2018-09-09] MEDS ORDERED: Acetaminophen 325 MG TAB PO PRN (18:31)
[2018-09-09] MEDS ORDERED: Ondansetron PF 4 MG/2 ML Vial IVP PRN ×2 (18:31)
[2018-09-09] MEDS ORDERED: Benzonatate 100 MG CAP PO PRN (18:31)
[2018-09-09] MEDS ORDERED: Bisacodyl 5 MG TAB PO PRN (18:31)
[2018-09-09] MEDS ORDERED: Sodium Chloride 0.65% Nasal 44 ML BOT EA NARE PRN (18:31)
[2018-09-09] MEDS ORDERED: Nitroglycerin 0.4 MG TAB (25 Tab Bottle) SL PRN (18:31)
[2018-09-09] MEDS ORDERED: Senokot S 8.6-50 MG TAB PO PRN ×2 (18:31)
[2018-09-09] MEDS ORDERED: Calcium Carbonate 500 MG ChewTAB PO PRN (18:31)
[2018-09-09] MEDS ORDERED: Ondansetron ODT 4 MG TAB PO PRN (18:31)
[2018-09-09] MEDS ORDERED: cloNIDine 0.1 MG TAB PO PRN (18:31)
[2018-09-09] MEDS ORDERED: Diabetic Tussin 200 MG/10 ML UDCUP PO PRN (18:31)
[2018-09-09] MEDS ORDERED: Aspirin 81 mg Enteric Coated Tablet PO SCH (18:45)
[2018-09-09] MEDS ORDERED: Diltiazem HCl 125 MG, Admixture Fee 1 EACH in Sodium Chloride 0.9% 100 ML IVPB SCH (18:45)
[2018-09-09 19:01] VITALS: BMI 23.8
--- NOTE | 2018-09-09 19:54 | HP ---
PRIMARY CARE PHYSICIAN: Jonathon Hawthorne MD CHIEF COMPLAINT: Generalized tiredness, weakness, and shortness of breath about 2 to 5 days duration. HISTORY OF PRESENT ILLNESS: Mr. Thrasher is a pleasant 83-year-old male without any significant past medical history, who is in otherwise very good health, came to the emergency room with above-mentioned complaint. History is mainly obtained by the patient himself and electronic medical records have been reviewed. The patient reports that he has been feeling poorly for the last week or so. He feels that he is "just not feeling right." He describes it as a feeling of generalized tiredness, weakness. He has been taking naps more frequently. He has also been noticing shortness of breath for the last 2 days. No recent travel. No recent illnesses. He was seen by his primary care physician, Dr. Hawthorne today. An EKG was done, which showed some arrhythmia, so he was sent to the ER. In the emergency room, upon presentation, his heart rate was 163 with a blood pressure 128/90, and he was found to have SVT on an off. He has recorded runs of heart rate in the 150s to 160s anywhere from 30 to 60 seconds. He received adenosine in the emergency room, which helped control his heart rate and then he was started on Cardizem drip. He underwent evaluation for shortness of breath. He was found to have elevated D-dimer, so he underwent a CT angio of the thorax and was found to have a small subsegmental pulmonary embolism and left upper lobe pulmonary artery. He was given weight based Lovenox dose and is now being admitted to telemetry unit for further monitoring and investigation and care. He otherwise denies having similar symptoms in the past. He has history of hepatitis C, but he has completed treatment 15 years ago. He does have family history of heart attack in his brother, who all of a sudden in his 70s. PAST MEDICAL HISTORY: 1. History of hep C, status post treatment 15 years ago. 2. History of pneumonia in 2018. PAST SURGICAL HISTORY: 1. History of left knee replacement. 2. Bilateral carpal tunnel surgery. 3. History of sciatica. HOME MEDICATIONS: Just [place] as needed at home. ALLERGIES: NO KNOWN MEDICATION ALLERGIES. PERSONAL HISTORY: He lives with his . No history of drug, tobacco, or alcohol abuse. FAMILY HISTORY: Mother lived up to be 101. Father lived up to be 95. One of his brothers in his 70s of unexpected sudden cardiac . CODE STATUS: Full code discussed with the patient. REVIEW OF SYSTEMS: A 12-point review of system is done, it is negative except for those mentioned in the history and physical. LABORATORY DATA: His CBC is unremarkable. D-dimer 1.46. Serum chemistries unremarkable, within normal limits. Cardiac enzymes, CK-MB 3.8, and troponin 0.042. Chest x-ray by my review has no evidence to suggest pleural effusion, edema, or infiltrate. CT angio shows small left upper lobe segmental pulmonary embolism. Otherwise, no evidence of infiltrate or edema. A 12-lead EKG by my review shows a heart rate of 163 with supraventricular tachycardia and left axis deviation initially with repeat EKG showing sinus rhythm with heart rate in 87 beats per minute and nonspecific ST and T-wave abnormalities. Third EKG done in the ER shows SVT again at heart rate 155. PHYSICAL EXAMINATION: VITAL SIGNS: Upon presentation, blood pressure 128/90, pulse of 163, saturating 97% on room air, respirations 18, saturating 97% on room air, and temperature 98.1. GENERAL: No acute distress. Awake, alert, and oriented x3, sitting upright in bed, family at bedside. He is in no acute distress. He is currently not even on oxygen via nasal cannula. HEENT: Mucous membrane is moist and pink. No oropharyngeal exudate or erythema. Head is normocephalic and atraumatic. Pupils are equal and reactive to light and accommodation. Extraocular movement intact. NECK: Supple without any lymphadenopathy, JVD, or bruit. CHEST: Clear to auscultation without any wheezing, rales or rhonchi. Rate and rhythm are regular without any murmurs, rubs, or gallops. ABDOMEN: Soft, nontender, and nondistended. Positive bowel sounds. EXTREMITIES: Free of any cyanosis, clubbing, or edema. NEUROLOGICAL: Nonfocal. SKIN: Free of any rashes or bruises. Feels warm and dry to touch. PSYCHIATRIC: Normal affect. IMPRESSION AND PLAN: 1. Pulmonary embolism. The patient will be started on subcu Lovenox 1 mg/kg b.i.d. dosing. He can be transitioned early to oral anticoagulation if no cardiac invasive testing is indicated. He is hemodynamically stable. He most likely will need anticoagulation for at least 3 months with this small unprovoked pulmonary embolism. No clinical evidence to suggest deep venous thrombosis. 2. Arrhythmias. The patient has been noticing supraventricular tachycardia, which was aborted by adenosine and he is currently on Cardizem drip. We will start him on oral Cardizem and taper the drip off. Echocardiogram will be ordered and we will continue to trend serial cardiac enzymes. His arrhythmia most likely is a result of the small pulmonary embolism. However, his symptoms of fatigue and tiredness are concerning for cardiomyopathy. Echocardiogram has been ordered for this reason as well. He is otherwise hemodynamically stable. We will request consultation with Cardiology in the morning. 3. Indeterminate troponin, likely demand ischemia from supraventricular tachycardia and pulmonary embolism. We will trend serial cardiac enzymes and give him a small dose of aspirin for now. We will also obtain echocardiogram as above. 4. Deep venous thrombosis and gastrointestinal prophylaxis. 5. Code status. Full code. 6. P.r.n. medication orders. DISPOSITION: Mr. Thrasher is currently being admitted to the hospital with pulmonary embolism and SVT, which has since been aborted into sinus rhythm. He is being admitted to telemetry unit. Estimated length of stay at this time is at least 2 to 3 midnights. Further management will depend upon his clinical course. Job ID: [id number]
[2018-09-09 20:01] LABS: CKMB 3.3 ng/mL (0-6.6)
[2018-09-09] MEDS: Digoxin 0.5 MG/2 ML AMP SLOW IVP SCH (20:20)
[2018-09-09] MEDS: Famotidine 20 MG TAB PO SCH (21:22)
[2018-09-09] MEDS: Gabapentin 300 MG CAP PO SCH (21:22)
[2018-09-10] MEDS: Digoxin 0.5 MG/2 ML AMP SLOW IVP SCH ×3 (02:14→14:22)
[2018-09-10 05:08] LABS: #Basophils 0.1 thou/uL (0.0-0.2); #Eosinphils 0.1 thou/uL (0.0-0.7); #Lymphocytes 1.7 thou/uL (1.20-3.40); #Monocytes 0.6 thou/uL (0.11-0.59); #Neutrophils 3.9 thou/uL (1.40-6.50); %Basophils 1.1 % (0.0-1.0); %Eosinophils 1.4 % (0.0-10.0); %Monocytes 9.8 % (0.0-10.0); %Neutrophils 60.7 % (42.0-75.0); Mean Corpuscular HGB CONC 33.2 g/dL (32.0-36.0); Mean Corpuscular Hemoglobin 30.2 pg (27.0-31.0); Mean Platelet Volume 10.1 fL (7.4-10.4); Platelet Count 160 thou/uL (130-400); RBC Distribution Width 13.1 % (11.5-14.5); Red Blood Cell (RBC) Count 3.98 mill/uL (4.70-6.10); White Blood Cell (WBC) Count 6.3 thou/uL (4.8-10.8)
[2018-09-10 05:33] LABS: Anion Gap 16 mmol/L (10-20); BUN (Urea Nitrogen) 23 mg/dL (8.4-25.7); Calc. Creatinine Clearance 62 mL/min (70-130); Calcium 9.2 mg/dL (7.8-10.44); Carbon Dioxide 17 mmol/L (23-31); Chloride 109 mmol/L (98-107); Estimated GFR-MDRD 77; Glucose 101 mg/dL (83-110); Potassium 4.1 mmol/L (3.5-5.1); Sodium 138 mmol/L (136-145)
[2018-09-10] MEDS ORDERED: Cepastat Lozenges 1 LOZ PO PRN (07:32)
[2018-09-10] MEDS ORDERED: Loperamide HCl 2 MG CAP PO PRN (07:32)
[2018-09-10] MEDS ORDERED: Temazepam 15 MG CAP PO PRN (07:32)
[2018-09-10] MEDS: Famotidine 20 MG TAB PO SCH ×2 (08:42→20:37)
[2018-09-10] MEDS ORDERED: Furosemide 40 MG/4 ML VIAL SLOW IVP SCH (09:00)
[2018-09-10] MEDS ORDERED: Enoxaparin Sodium 80 MG/0.8 ML SYRINGE SC SCH (09:00)
--- NOTE | 2018-09-10 10:30 | PDOC.PN ---
- Subjective Encounter Start Date: 09/10/18 Encounter Start Time: 07:30 -: old records requested/rev Patient seen and examined. No new complaints. No overnight events - Objective Resuscitation Status - Order Detail: 09/09/18 18:31 Resuscitation Status Routine Resuscitation Status: FULL: Full Resuscitation Discussed with: discussed w pt MAR Reviewed: Yes Vital Signs & Weight: Vital Signs (12 hours) Temp Pulse Resp BP BP Pulse Ox 09/10/18 08:41 77 09/10/18 08:14 98.2 F 77 117/83 96 09/10/18 03:14 98.5 F 75 18 98/74 94 L 09/10/18 02:14 81 Weight Weight 156 lb 14.4 oz Result Diagrams: 09/10/18 04:34 09/10/18 04:33 Radiology Reviewed by me: Yes EKG Reviewed by me: Yes (nsr) Phys Exam - Physical Examination Constitutional: NAD HEENT: PERRLA, moist MMs, sclera anicteric Neck: no JVD, supple Respiratory: no wheezing, no rales, no rhonchi Cardiovascular: RRR, no significant murmur, no rub Gastrointestinal: soft, non-tender, no distention, positive bowel sounds Musculoskeletal: no edema, pulses present Neurological: non-focal, normal sensation Lymphatic: no nodes Psychiatric: normal affect Skin: no rash, normal turgor Dx/Plan (1) SVT (supraventricular tachycardia) Code(s): I47.1 - SUPRAVENTRICULAR TACHYCARDIA Status: Resolved (2) Pulmonary embolism Code(s): I26.99 - OTHER PULMONARY EMBOLISM WITHOUT ACUTE COR PULMONALE Status : Acute (3) Demand ischemia Code(s): I24.8 - OTHER FORMS OF ACUTE ISCHEMIC HEART DISEASE Status: Acute (4) COPD (chronic obstructive pulmonary disease) Status: Chronic Qualifiers: COPD type: chronic bronchitis Chronic bronchitis type: unspecified Qualified Code(s): J42 - Unspecified chronic bronchitis (5) Chronic back pain Code(s): M54.9 - DORSALGIA, UNSPECIFIED; G89.29 - OTHER CHRONIC PAIN Status: Chronic Qualifiers: Back pain location: low back pain (6) Tobacco abuse Code(s): Z72.0 - TOBACCO USE Status: Chronic - Plan cont current plan of care, plan discussed w/ family * medication reviewed as below * symptomatic treatment * echo done today * currently on lovenox * discussed with family Review of Systems - Review of Systems ENT: negative: Ear Pain, Ear Discharge, Nose Pain, Nose Discharge, Nose Congestion, Mouth Pain, Mouth Swelling, Throat Pain, Throat Swelling, Other Respiratory: negative: Cough, Dry, Shortness of Breath, Hemoptysis, SOB with Excertion, Pleuritic Pain, Sputum, Wheezing Cardiovascular: negative: chest pain, palpitations, orthopnea, paroxysmal nocturnal dyspnea, edema, light headedness, other Gastrointestinal: negative: Nausea, Vomiting, Abdominal Pain, Diarrhea, Constipation, Melena, Hematochezia, Other Genitourinary: negative: Dysuria, Frequency, Incontinence, Hematuria, Retention , Other Musculoskeletal: negative: Neck Pain, Shoulder Pain, Arm Pain, Back Pain, Hand Pain, Leg Pain, Foot Pain, Other Skin: negative: Rash, Lesions, Fausto, Bruising, Other - Medications/Allergies Allergies/Adverse Reactions: Allergies Allergy/AdvReac Type Severity Reaction Status Date / Time No Known Allergies Allergy Verified 09/09/18 21:51 Medications: Current Medications Acetaminophen (Tylenol) 650 mg PO Q4H PRN PRN Reason: Headache/Fever/Mild Pain (1-3) Hydrocodone Bitart/Acetaminophen ([place] 5/325) 1 tab PO Q4H PRN PRN Reason: Moderate Pain (4-6) Bisacodyl (Dulcolax) 10 mg PO DAILYPRN PRN PRN Reason: Constipation Calcium Carbonate (Tums) 1,000 mg PO Q4H PRN PRN Reason: Heartburn or Indigestion Clonidine (Catapres) 0.1 mg PO Q4H PRN PRN Reason: SBP > 160____ Digoxin (Lanoxin) 0.25 mg SLOW IVP Q6H [facility] Stop: 09/10/18 13:31 Last Admin: 09/10/18 08:41 Dose: 0.25 mg Diltiazem HCl (Cardizem) 30 mg PO ACHS [facility] Last Admin: 09/10/18 08:42 Dose: 30 mg Enoxaparin Sodium (Lovenox) 70 mg SC 0900,2100 [facility] Last Admin: 09/10/18 08:43 Dose: 70 mg Famotidine (Pepcid) 20 mg PO BID [facility] Last Admin: 09/10/18 08:42 Dose: 20 mg Furosemide (Lasix) 40 mg SLOW IVP ONE [facility] Stop: 09/10/18 11:00 Gabapentin (Neurontin) 300 mg PO HS [facility] Last Admin: 09/09/18 21:22 Dose: 300 mg Guaifenesin (Robitussin Sf) 200 mg PO Q4H PRN PRN Reason: Cough Hydralazine HCl (Apresoline) 10 mg SLOW IVP Q4H PRN PRN Reason: SBP > 180 and HR < 70 Loperamide HCl (Imodium) 2 mg PO PRN PRN PRN Reason: Diarrhea/Loose Stools Nitroglycerin (Nitrostat) 0.4 mg SL Q5MIN PRN PRN Reason: Chest Pain Ondansetron HCl (Zofran Odt) 4 mg PO Q6H PRN PRN Reason: Nausea/Vomiting Ondansetron HCl (Zofran) 4 mg IVP Q6H PRN PRN Reason: Nausea/Vomiting Senna/Docusate Sodium (Senokot S) 2 tab PO BID PRN PRN Reason: Constipation Sodium Chloride ([place] Nasal [place] 0.65%) 0 ml EA NARE QIDPRN PRN PRN Reason: Nasal Congestion Sodium Chloride (Flush - Normal Saline) 10 ml IVF Q12HR [facility] Last Admin: 09/10/18 08:44 Dose: 10 ml Sodium Chloride (Flush - Normal Saline) 10 ml IVF PRN PRN PRN Reason: Saline Flush Temazepam (Restoril) 15 mg PO HSPRN PRN PRN Reason: Insomnia Throat Lozenges (Cepastat Lozenges) 1 bret PO Q2H PRN PRN Reason: Sore Throat
[2018-09-10] MEDS ORDERED: Iopamidol 370 76% 100 ML VIAL ONE (10:56)
--- NOTE | 2018-09-10 11:07 | CON ---
DATE OF CONSULTATION: 09/10/2018 SERVICE: Pulmonary Medicine. REASON FOR CONSULT: The patient is an 83-year-old [place] male with past medical history significant for essentially nothing. He was in his usual state of health when he started having onset of shortness of breath roughly 5 days ago. This was progressive in nature. It initially occurred when he was sleeping, but then progressed to the point where he had dyspnea with exertion. He had a cough. He would not bring up any sputum. He denies any current fevers, chills, nausea, vomiting, or diarrhea. He was not having any belly discomfort. He did have a lack of appetite, but there were no changes to his bowel movements. Otherwise, he was in his usual state of health. He presented to the emergency department and was discovered to have both a very tiny pulmonary embolism, and a tachyarrhythmia. He was initiated on appropriate anticoagulation therapy, and a cardiology consultation was placed. An echocardiogram was performed. I had a benefit of being at bedside when this was being done, it appears that his ejection fraction is reduced, which is a new revelation. Overnight, he feels significantly better. His heart rate is under much better control. Electrophysiology and Cardiology are deciding what to do next. I was consulted to see whether or not I felt the pulmonary embolism was the major milk tanker driver of the patient's underlying symptoms. PAST MEDICAL HISTORY: 1. History of chronic hepatitis C, status post therapy 15 years ago. 2. Sciatic nerve pain, occasional. 3. Recent Legionella pneumonia, status post full course of therapy with imaging that demonstrated complete resolution in the infiltrate. PAST SURGICAL HISTORY: 1. Left knee replacement. 2. Carpal tunnel surgery, bilateral. FAMILY HISTORY: Noncontributory. SOCIAL HISTORY: He drinks alcohol occasionally. He has a greater than 50-pack year history of smoking, but he discontinued smoking altogether about 8 months ago. He denies any exposure to illicit drugs, chemicals, dust, asbestos, or tuberculosis. ALLERGIES: NO KNOWN DRUG ALLERGIES. MEDICATIONS: List of the inpatient medications was reviewed. I provided him with a single dose of Lasix in order to decrease his volume overload. REVIEW OF SYSTEMS: General, head ears, eyes, nose, throat, cardiovascular, respiratory, GI, , musculoskeletal, neurologic, and skin are negative except as mentioned in the HPI. PHYSICAL EXAMINATION: VITAL SIGNS: Afebrile, pulse 77, blood pressure 117/83, respirations 18, and saturation 96% on room air. GENERAL: The patient is awake and alert, in no apparent distress. LUNGS: There is excellent air entry. There is no prolonged expiratory phase. Dependent crackles are noted. No wheezing or rhonchi are appreciated. HEART: Normal rate, regular. ABDOMEN: Soft, nontender, and nondistended. Bowel sounds are positive. MUSCULOSKELETAL: No cyanosis or clubbing. No pitting in the bilateral lower extremities. NEUROLOGIC: Grossly nonfocal. IMAGING DATA: 1. CTA of the chest demonstrates interstitial fullness which was not previously present. He has minimal reflux of contrast into the inferior vena cava, dilated left atrium, bilateral pleural effusions. All of these things are consistent with volume overload state. There is a very tiny pulmonary embolism in the subsegmental pulmonary artery in the left upper lobe. 2. Echocardiogram demonstrates reduced ejection fraction and a PFO. ASSESSMENT: 1. Acute systolic heart failure. 2. Tachyarrhythmia, currently rate controlled. 3. Acute pulmonary embolism, extremely small. DISCUSSION AND PLAN: This pulmonary embolism is extremely small and in no way is contributing to the patient's symptoms of shortness of breath and dyspnea on exertion. The volume overload was causing his shortness of breath. We will provide him with a single dose of Lasix. I agree with a minimum of six months of anticoagulation or longer if dictated by the tachyarrhythmia. I talked to the patient about the risks and benefits of pursuing anticoagulation versus no anticoagulation, and he has decided to go with anticoagulation. I then discussed the risks and benefits of direct oral anticoagulants and Coumadin. After discussing the risks and benefits of both of these classes of drugs, the patient has elected to go with a direct oral anticoagulant. He understands that this could result in a life-threatening bleed. He also appreciates that if he has significant bleeding from anywhere he cannot put his finger to stop the bleeding, he needs to present immediately to the emergency department. He would like a once daily medication , so I think Xarelto would be a good option for him. I will keep him n.p.o. for the time being as procedures may be indicated given his new finding of systolic heart failure. Hopefully, this is all acute and associated with the tachyarrhythmia, and that with good medications, he can regain heart function. I am pleased to hear that he is feeling a little bit better with his rate control. Pulmonary will continue to follow. From a purely PE perspective, he can be discharged from the hospital once cardiology is done with him. He can be transitioned home on Xarelto. 70 minutes have been devoted to this patient in various activities. I personally reviewed all imaging studies and laboratory data noted within this document. For fifty percent of this time, I was interacting with the patient at the bedside or coordinating care with the care team. For the remainder of the time I was immediately available to the patient in the hospital unit. Job ID: [id number] MTDD
--- NOTE | 2018-09-10 12:01 | ULT ---
ULTRASOUND WITH DOPPLER DUPLEX VENOUS LOWER EXTREMITIES BILATERAL: HISTORY: Pulmonary thromboembolism in 83-year-old male. TECHNIQUE: Color flow Doppler, spectral waveform analysis of pulsed Doppler, and coyle-scale imaging with cherrie hortensia and augmentation, were used to evaluate the bilateral common femoral, femoral, popliteal, explosives mixer operator ior tibial, and superficial femoral, veins; and the proximal portions of the profunda femoral and gre ater saphenous, veins. FINDINGS: There is normal compressibility, demonstration of blood flow by color Doppler and pulsed Doppler, and response to augmentation, in all interrogated veins. IMPRESSION: Negative. No deep vein thrombosis in the bilateral lower extremities. jn[] POS: [facility]
[2018-09-10] MEDS ORDERED: Communication Order-Pharmacy FS SCH (12:15)
[2018-09-10] MEDS ORDERED: Nitroglycerin 100MG/250ML BOT 250 ML ONE (12:49)
[2018-09-10] MEDS ORDERED: Verapamil 5 MG/2 ML VIAL ONE (12:49)
[2018-09-10] MEDS ORDERED: Midazolam HCl 2 mg/2 ml Vial ONE (12:53)
[2018-09-10] MEDS ORDERED: Fentanyl 100 MCG/2 ML VIAL ONE (12:53)
[2018-09-10] MEDS ORDERED: Acetaminophen/Codeine 30-300mg Tablet PO PRN ×2 (13:08)
[2018-09-10] MEDS ORDERED: Nitroglycerin 0.4 MG TAB (25 Tab Bottle) SL PRN (13:08)
[2018-09-10] MEDS ORDERED: traMADol HCl 50 MG TAB PO PRN (13:08)
--- NOTE | 2018-09-10 13:14 | CON ---
DATE OF CONSULTATION: REASON FOR CONSULTATION: Tachycardia. HISTORY OF PRESENT ILLNESS: Mr. Thrasher is a very pleasant 83-year-old gentleman, who recently complained of increased shortness of breath. This occurred over the last 2 to 3 months. No significant lower extremity edema, PND, or orthopnea. He was found to be significantly tachycardic while in the emergency room. Heart rate is in the 150s to 160s. He was also diagnosed with a small PE. He has now been subsequently admitted. During my visit on the floor, he was found to be in SVT. He was given IV digoxin with significant improvement. PAST MEDICAL HISTORY: Hepatitis C and pneumonia. PAST SURGICAL HISTORY: Knee replacement and carpal tunnel release. ALLERGIES: NONE. SOCIAL HISTORY: No current tobacco or alcohol use. He used to working. REVIEW OF SYMPTOMS: A 10-point review of systems is reviewed and as above, otherwise negative. PHYSICAL EXAMINATION: VITAL SIGNS: Blood pressure 130/79, pulse 68, and temperature 98.1. GENERAL: Patient is a pleasant male, who is in no acute distress. The patient appears their stated age. NEUROLOGIC: The patient is alert and oriented x3 with no focal neurologic deficits. HEENT: Sclerae without icterus. Mouth has moist mucous membranes with normal pallor. NECK: No JVD. Carotid upstroke brisk. No bruits bilaterally. LUNGS: Clear to auscultation with unlabored respirations. BACK: No scoliosis or kyphosis. CARDIAC: Regular rate and rhythm with normal S1 and S2. No S3 or S4 noted. No significant rubs, murmurs, thrills, or gallops noted throughout the precordium. PMI is not displaced. There is no parasternal heave. ABDOMEN: Soft, nontender, nondistended. No peritoneal signs present. No hepatosplenomegaly. No abnormal striae. EXTREMITIES: 2+ femoral and 2+ dorsalis pedis pulses. No cyanosis, clubbing, or edema. SKIN: No gross abnormalities. PERTINENT LABORATORY DATA: Hemoglobin 12, hematocrit 36.2. Creatinine 0.94, GFR 77. Peak troponin 0.042. IMPRESSION: 1. Tachycardia, likely supraventricular tachycardia. 2. Cardiomyopathy of unknown etiology. 3. Pulmonary embolism. RECOMMENDATIONS: From my standpoint, we would recommend coronary angiography versus noninvasive stress study. His most recent echo did suggest LVEF 25% to 30%. After discussion of the risks and benefits of both, decided to proceed with coronary angiography. I discussed proceeding in full detail with Mr. Thrasher. Risks include, not limited to the following: I discussed the procedure in full detail with the patient. The risks of the procedure were also discussed. The risks of the procedure include but are not limited to the following: , stroke, CA, need for emergency surgery, loss of limb, bleeding, and infection, as well as a reaction to the dye causing kidney failure and needing long-term dialysis. I also discussed the risks of PCI to include all of the above including coronary dissection and perforation in addition to acute stent thrombosis and restenosis. I also discussed drug-coated versus [id number] stent placement. There were no contraindications to proceed if needed. Further recommendation will be pending the above. Job ID: [id number]
[2018-09-10] MEDS ORDERED: Sodium Chloride 0.9% 1,000 ML IV SCH (13:15)
[2018-09-10] MEDS ORDERED: Sodium Chloride 0.9% 200 ML IV SCH (13:15)
[2018-09-10] MEDS: Sodium Chloride 0.9% 1,000 ML IV SCH ×2 (13:59→20:38)
--- NOTE | 2018-09-10 14:43 | CON ---
DATE OF CONSULTATION: 09/10/2018 ELECTROPHYSIOLOGY CONSULTATION REPORT HISTORY OF PRESENT ILLNESS: I am seeing Mr. Thrasher at our [facility] Telemetry Floor as an Electrophysiology eligibility consultant. His problems are: 1. Paroxysmal atrial tachycardia episodes on presentation. a. Good response to digoxin and diltiazem IV. 2. Possible small pulmonary embolism in subsegmental level in the left upper lobe per CT angio. 3. Reduced LVEF by echocardiogram. 4. Elevated troponins, possible demand ischemia. 5. History of COPD and tobacco abuse. 6. History of hepatitis C, post treatment. ALLERGIES: NONE NOTED. MEDICATIONS: At home included gabapentin. SUBJECTIVE: Mr. Thrasher presented at his primary care physician with generalized tiredness, weakness, shortness of breath about 2 to 5 days in duration. He was evaluated by the ER and was found to be in rapid narrow complex tachycardia. Eventually, given diltiazem and digoxin. Episodes had kept recurring, but overnight, they subsided, currently maintaining sinus rhythm. He has never passed out. Denies to chest pain. No fever, chills, or cough. No stroke-like symptoms. No neurological deficits. No PND or orthopnea. Rest of 12-point system otherwise unremarkable. PAST MEDICAL HISTORY: As above. Remote history of pneumonia in 2018 and history of left knee replacement in the past. SOCIAL HISTORY: The patient is a smoker. Denies EtOH or drug abuse. FAMILY HISTORY: Significant for mother lived to 101. Father lived till 95. Brother at 70s, unexpected sudden . OBJECTIVE DATA: VITAL SIGNS: Blood pressure is 133/79, heart rate 68, respiratory rate is 18, temperature 98.1 degrees Fahrenheit. GENERAL: Alert and oriented man, in no apparent distress. NECK: Supple. Jugular veins are not distended. CHEST: Coarse without crackles. HEART: Sounds are regular to rate and rhythm. No murmur or gallop. ABDOMEN: Benign. Bowel sounds positive. EXTREMITIES: Lower extremity without edema, clubbing or cyanosis. Pulses are adequate. NEUROLOGIC: The patient is nonfocal. MUSCULOSKELETAL EXAM: Without joint swelling or deformity. SKIN: Without rash. DATABASE: EKG is reviewed revealing sinus rhythm, changes, but the initial EKGs revealed atrial tachycardia with rates up to 180 beats per minute, P-waves are somewhat difficult to elicit T waves. LABORATORY DATA: The white count is 6.3, hemoglobin 12.0, platelet count is 160. D-dimer is 1.46. Sodium 138, potassium 4.1, BUN 23, creatinine 0.94. The troponin levels of 0.042, 0.041, 0.036. ASSESSMENT AND PLAN: Mr. Thrasher is a pleasant 83-year-old man with history of smoking and chronic obstructive pulmonary disease, who presented with narrow complex tachycardia and also found to have a small pulmonary embolism. At this point, he seems to be stabilized with IV diltiazem and digoxin. IV diltiazem has been already turned off. He is being anticoagulated, hence the pulmonary evaluation also performed and is felt to be fluid overloaded and being diuresed. We discussed the potential mechanism of his atrial tachyarrhythmia. Alternative narrow complex SVTs cannot be completely ruled out. It is for now he seems to be responding well to the initiated digoxin and diltiazem therapy. Has a history of PE. I would prefer continued anticoagulation and conservative management for now should there be further recurrent atrial tachycardia events or other SVT. He may need to be considered for antiarrhythmic agents versus ablation therapy in the future. A 2D echo to be evaluating LV function hence it might be reduced. Subacute pulmonary embolism, monitor, start OAC.. Routine followup. We will follow up with you in the hospital. Job ID: [id number] [facility]
[2018-09-10] MEDS: Gabapentin 300 MG CAP PO SCH (20:37)
[2018-09-10] MEDS: Carvedilol 3.125 MG TAB PO SCH (20:37)
[2018-09-10] MEDS ORDERED: Digoxin 0.125 MG TAB PO SCH (21:00)
[2018-09-11] MEDS: Carvedilol 3.125 MG TAB PO SCH (08:20)
[2018-09-11] MEDS: Famotidine 20 MG TAB PO SCH (08:20)
[2018-09-11 08:23] VITALS: BP 125/74; TEMP 98.3
[2018-09-11] MEDS ORDERED: Digoxin 0.125 MG TAB PO SCH (09:00)
--- NOTE | 2018-09-11 10:52 | DIS ---
DATE OF ADMISSION: 09/09/2018 DATE OF DISCHARGE: 09/11/2018 PRIMARY CARE PHYSICIAN: Jonathon Hawthorne MD DISCHARGE DISPOSITION: Home. PRIMARY DISCHARGE DIAGNOSES: 1. New onset cardiomyopathy, nonischemic. 2. Demand ischemia of myocardium. 3. Moderate mitral regurgitation. 4. Moderate tricuspid regurgitation. 5. Pulmonary embolism. 6. Supraventricular tachycardia, resolved. SECONDARY DISCHARGE DIAGNOSES: Tobacco abuse, COPD, and chronic low back pain. PRIMARY PROCEDURE/OPERATION: Cardiac catheterization, which was normal. RADIOLOGICAL INVESTIGATION: Chest x-ray unremarkable. CT angio showed small distal PE. Ultrasound negative for DVT. Echocardiography showed EF 25% to 30%, moderate MR, and moderate TR. DISCHARGE MEDICATIONS: 1. Coreg 3.125 mg p.o. b.i.d. 2. Digoxin 0.125 mg p.o. daily. 3. Lisinopril 2.5 mg p.o. daily. 4. Xarelto 15 mg p.o. b.i.d. for 3 weeks and then 20 mg p.o. daily. 5. Gabapentin 300 mg p.o. at bedtime. 6. Ventolin inhaler q.6 hourly p.r.n. 7. Aldactone 25 mg p.o. daily. CONTRAINDICATIONS: None. CODE STATUS: Full code. INPATIENT CONSULTANTS: Dr. Martínez was consulted while in hospital, Dr. Ramos was consulted while in hospital. Dr. Ramin Mayer was consulted while in hospital. None. TEST RESULTS PENDING ON DISCHARGE: None. ALLERGIES: NO KNOWN DRUG ALLERGY. DISCHARGE PLAN: Post hospital, the patient will follow up with Dr. Martínez, Dr. Mayer, and Dr. Ramos as instructed. HOSPITAL COURSE: An 83-year-old male who was admitted by Dr. Jaimes. Please see her H and P for further details. On admission, the patient was having SVT that was resolved with Cardizem drip. Subsequently, his rate was under controlled. He had CT angiography because of elevated D-dimer, which was positive for small distal PE. Pulmonary group was consulted and they recommended to continue anticoagulation therapy for his SVT. Cardiology was consulted and Cardiology recommended gasket maker consultation and based on electrophysiology consultation, does not need any ablation at this point. Cardiology did cardiac cath for a new onset cardiomyopathy and the patient was found with negative for any blockage and we attributed to be due to nonischemic cardiomyopathy. Because of that, we started Coreg, lisinopril, and Aldactone on his regimen. His rate will be controlled with digoxin and Coreg. He will follow up with gasket maker, cage clerk, and assistant plant manager. The patient chose Xarelto for chronic anticoagulation therapy. The patient is seen and examined at bedside today. His vitals are normal. His examination is completely unremarkable other than mild systolic murmur over parasternally and then apex. He is completely euvolemic and hemodynamically stable, asymptomatic on room air, tolerating p.o. well. He had elevated D-dimer while in hospital that was related with the SVT from demand ischemia. PHYSICAL EXAMINATION: VITAL SIGNS: Currently, temperature 98.3, pulse 66, respiratory rate 16, saturation 92%, and blood pressure 125/74, weight 146 pounds. GENERAL: The patient is currently alert and awake. No obvious acute distress. HEENT: Head; normocephalic, atraumatic. Eyes; pupils round, and reactive to light. Extraocular muscle intact. ENT; oropharynx within normal limits. Moist mucous membranes. No oral lesion. No pharyngeal erythema. No exudate. NECK: Supple. No JVD. No thyromegaly. No carotid bruit. LUNGS: Clear to auscultation without any rhonchi or rales. CARDIAC: S1, S2 regular without any murmur. ABDOMEN: Soft and benign without any tenderness. EXTREMITIES: No edema. NEUROLOGIC: Nonfocal examination. Overall, the patient is medically stable for discharge today. life vest will be arranged before discharge as per cardiology recommendation. Total time spent on discharge day 31 minutes Job ID: [id number] [facility]
--- NOTE | 2018-09-11 10:52 | PDOC.PN ---
- Subjective Encounter Start Date: 09/11/18 Encounter Start Time: 07:45 -: old records requested/rev Patient seen and examined. No new complaints. No overnight events - Objective Resuscitation Status - Order Detail: 09/09/18 18:31 Resuscitation Status Routine Resuscitation Status: FULL: Full Resuscitation Discussed with: discussed w pt GRACE Reviewed: Yes Vital Signs & Weight: Vital Signs (12 hours) Temp Pulse Resp BP Pulse Ox 09/11/18 08:22 98.3 F 66 16 125/74 92 L 09/11/18 08:19 62 09/11/18 06:05 95 09/11/18 04:00 98 F 65 17 112/67 96 Weight Weight 146 lb 6.4 oz Result Diagrams: 09/10/18 04:34 09/10/18 04:33 EKG Reviewed by me: Yes Phys Exam - Physical Examination Constitutional: NAD HEENT: PERRLA, moist MMs, sclera anicteric Neck: no JVD, supple Respiratory: no wheezing, no rales, no rhonchi Cardiovascular: RRR, no rub Gastrointestinal: soft, non-tender, no distention, positive bowel sounds Musculoskeletal: no edema, pulses present Neurological: non-focal, normal sensation, moves all 4 limbs Psychiatric: normal affect, A&O x 3 Skin: no rash, normal turgor Dx/Plan (1) SVT (supraventricular tachycardia) Code(s): I47.1 - SUPRAVENTRICULAR TACHYCARDIA Status: Resolved (2) Pulmonary embolism Code(s): I26.99 - OTHER PULMONARY EMBOLISM WITHOUT ACUTE COR PULMONALE Status : Acute (3) Demand ischemia Code(s): I24.8 - OTHER FORMS OF ACUTE ISCHEMIC HEART DISEASE Status: Acute (4) COPD (chronic obstructive pulmonary disease) Status: Chronic Qualifiers: COPD type: chronic bronchitis Chronic bronchitis type: unspecified Qualified Code(s): J42 - Unspecified chronic bronchitis (5) Chronic back pain Code(s): M54.9 - DORSALGIA, UNSPECIFIED; G89.29 - OTHER CHRONIC PAIN Status: Chronic Qualifiers: Back pain location: low back pain (6) Tobacco abuse Code(s): Z72.0 - TOBACCO USE Status: Chronic (7) Cardiomyopathy Code(s): I42.9 - CARDIOMYOPATHY, UNSPECIFIED Status: Acute (8) Moderate mitral regurgitation Code(s): I34.0 - NONRHEUMATIC MITRAL (VALVE) INSUFFICIENCY Status: Acute (9) Moderate tricuspid regurgitation Code(s): I07.1 - RHEUMATIC TRICUSPID INSUFFICIENCY Status: Acute - Plan cont current plan of care * medication reviewed as below * symptomatic treatment * see discharge yonatan. - Discharge Day Minutes spent coordinating discharge of patient: 31 Review of Systems - Review of Systems ENT: negative: Ear Pain, Ear Discharge, Nose Pain, Nose Discharge, Nose Congestion, Mouth Pain, Mouth Swelling, Throat Pain, Throat Swelling, Other Respiratory: negative: Cough, Dry, Shortness of Breath, Hemoptysis, SOB with Excertion, Pleuritic Pain, Sputum, Wheezing Cardiovascular: negative: chest pain, palpitations, orthopnea, paroxysmal nocturnal dyspnea, edema, light headedness, other Gastrointestinal: negative: Nausea, Vomiting, Abdominal Pain, Diarrhea, Constipation, Melena, Hematochezia, Other Genitourinary: negative: Dysuria, Frequency, Incontinence, Hematuria, Retention , Other Musculoskeletal: negative: Neck Pain, Shoulder Pain, Arm Pain, Back Pain, Hand Pain, Leg Pain, Foot Pain, Other - Medications/Allergies Allergies/Adverse Reactions: Allergies Allergy/AdvReac Type Severity Reaction Status Date / Time No Known Allergies Allergy Verified 09/09/18 21:51 Medications: Current Medications Acetaminophen (Tylenol) 650 mg PO Q4H PRN PRN Reason: Headache/Fever/Mild Pain (1-3) Acetaminophen/Codeine Phosphate (Tylenol #3) 1 tab PO Q4H PRN PRN Reason: Mild Pain (1-3) Acetaminophen/Codeine Phosphate (Tylenol #3) 2 tab PO Q4H PRN PRN Reason: Moderate Pain (4-6) Hydrocodone Bitart/Acetaminophen ([place] 5/325) 1 tab PO Q4H PRN PRN Reason: Moderate Pain (4-6) Bisacodyl (Dulcolax) 10 mg PO DAILYPRN PRN PRN Reason: Constipation Calcium Carbonate (Tums) 1,000 mg PO Q4H PRN PRN Reason: Heartburn or Indigestion Carvedilol (Coreg) 3.125 mg PO BID [facility] Last Admin: 09/11/18 08:20 Dose: 3.125 mg Clonidine (Catapres) 0.1 mg PO Q4H PRN PRN Reason: SBP > 160____ Digoxin (Lanoxin) 0.125 mg PO DAILY [facility] Last Admin: 09/11/18 08:19 Dose: 0.125 mg Famotidine (Pepcid) 20 mg PO BID [facility] Last Admin: 09/11/18 08:20 Dose: 20 mg Gabapentin (Neurontin) 300 mg PO HS [facility] Last Admin: 09/10/18 20:37 Dose: 300 mg Guaifenesin (Robitussin Sf) 200 mg PO Q4H PRN PRN Reason: Cough Hydralazine HCl (Apresoline) 10 mg SLOW IVP Q4H PRN PRN Reason: SBP > 180 and HR < 70 Loperamide HCl (Imodium) 2 mg PO PRN PRN PRN Reason: Diarrhea/Loose Stools Nitroglycerin (Nitrostat) 0.4 mg SL Q5MIN PRN PRN Reason: Chest Pain Nitroglycerin (Nitrostat) 0.4 mg SL Q5MIN PRN PRN Reason: Chest Pain Ondansetron HCl (Zofran Odt) 4 mg PO Q6H PRN PRN Reason: Nausea/Vomiting Ondansetron HCl (Zofran) 4 mg IVP Q6H PRN PRN Reason: Nausea/Vomiting Senna/Docusate Sodium (Senokot S) 2 tab PO BID PRN PRN Reason: Constipation Sodium Chloride ([place] Nasal [place] 0.65%) 0 ml EA NARE QIDPRN PRN PRN Reason: Nasal Congestion Sodium Chloride (Flush - Normal Saline) 10 ml IVF Q12HR [facility] Last Admin: 09/11/18 08:21 Dose: 10 ml Sodium Chloride (Flush - Normal Saline) 10 ml IVF PRN PRN PRN Reason: Saline Flush Temazepam (Restoril) 15 mg PO HSPRN PRN PRN Reason: Insomnia Throat Lozenges (Cepastat Lozenges) 1 bret PO Q2H PRN PRN Reason: Sore Throat Tramadol HCl (Ultram) 50 mg PO Q6H PRN PRN Reason: Moderate Pain (4-6)
--- NOTE | 2018-09-11 13:09 | PRG ---
DATE OF SERVICE: 09/11/2018 SERVICE: Pulmonary Medicine. INTERVAL HISTORY: The patient is breathing beautifully. He has no complaints. He denies any current nausea, vomiting, or diarrhea. He tells me that he had a cardiac catheterization yesterday and he had clean coronaries. The approach was through the right radial artery. There were no events overnight. He is actually feeling much improved and ready to get out of here. He is being fitted for a LifeVest. PHYSICAL EXAMINATION: VITAL SIGNS: Afebrile, pulse 72, respirations 19, and saturation 99% on room air. GENERAL: The patient is awake and alert, in no apparent distress. LUNGS: Excellent air entry. There is no crackles today. HEART: Normal rate, regular. ABDOMEN: Soft, nontender, nondistended. Bowel sounds are positive. MUSCULOSKELETAL: No cyanosis or clubbing. There is no pitting in the bilateral lower extremities. NEUROLOGIC: Grossly nonfocal. ASSESSMENT: 1. Acute pulmonary embolism, very small, but real. 2. Tachyarrhythmia, resolved with medication. 3. Acute systolic heart failure, with clean coronaries. 4. Restless legs syndrome. DISCUSSION AND PLAN: From my perspective, the patient is doing absolutely fantastic. At this point, he has no further requirements for Inpatient Pulmonary Critical Care opinion. When Cardiology dismisses him from the hospital, he can go out on a 6-month course of Xarelto. I have provided him a starter dose pack and a prescription for that supply today. He will return to clinic as previously directed. Certainly, if any respiratory issues, he will come back to clinic sooner. I will verify that he had a TSH checked during his hospital stay. Job ID: [id number]
--- NOTE | 2018-09-11 16:49 | PRG ---
DATE OF SERVICE: 09/11/2018 ELECTROPHYSIOLOGY FOLLOWUP NOTE SUBJECTIVE: Mr. Thrasher seems to be doing much better. Denies any further palpitations. No dizziness of consciousness. Breathing issues have improved. OBJECTIVE: VITAL SIGNS: Blood pressure 125/74, heart rate 66, respirations 16, temperature 98.3. GENERAL: Alert and oriented man, in no apparent distress. NECK: Supple. Jugular veins are not distended. CHEST: Coarse without crackles. HEART: Sounds are regular. No murmur or gallop. ABDOMEN: Benign. Bowel sounds are positive. LOWER EXTREMITIES: Without edema, clubbing, or cyanosis. DATABASE: Echocardiogram yesterday reveals LVEF of 25% to 30% with severe mitral regurgitation, mild to moderate tricuspid regurgitation, and diastolic dysfunction. Telemetry strips reveal no further atrial arrhythmias noted. LABORATORY DATA: No new labs. ASSESSMENT AND PLAN: Mr. Thrasher is an 83-year-old man, who presented with severe dyspnea and episodes of atrial tachycardia. The atrial tachycardia episode resolved with transient IV diltiazem and digoxin administration. He has been maintaining sinus rhythm at this time. He was discovered to have a very small subsegmental PE, for which he is on anticoagulation. Also, his LVEF found to be severely reduced. Dr. Martínez plans left heart catheterization. 1. My plan is regarding his atrial arrhythmias to continue to be suppressed with medical therapy. Hence, the history of PE and likely need for anticoagulation without interruption at this point, I would continue medical management. Digoxin and uptitrated Coreg are likely reasonable to continue. 2. Newly found cardiomyopathy. Likely nonischemic, although Dr. Martínez will evaluate it with a heart catheterization. LifeVest is already ordered as per Dr. Martínez. Agree with the management. If LVEF remains severely reduced despite multiple medical therapy, he may be a consideration for ICD implant in group home. 3. If further recurrent atrial arrhythmias on optimal medical therapy at a later date after resolution of the PE, EP study and ablation could be considered. 4. PE of unclear etiology. For now, continue anticoagulation. 5. We will follow up with you and have to see this gentleman back as an outpatient. He will clearly need a followup echocardiogram in the future to assess his improvement of his LV function in the future. Job ID: [id number] [facility]
--- NOTE | 2018-09-12 07:28 | PRG ---
DATE OF SERVICE: 09/11/2018 SUBJECTIVE: Mr. Thrasher is doing well and no current complaints. No chest pain or pressure noted. No lower extremity edema. He is awaiting LifeVest. OBJECTIVE: GENERAL: The patient is a pleasant 83-year-old male, who is in no acute distress. The patient appears their stated age. VITAL SIGNS: Blood pressure 126/70, pulse 80, and respirations 20. NEUROLOGIC: The patient is alert and oriented x3 with no focal neurologic deficits. HEENT: Sclerae without icterus. Mouth has moist mucous membranes with normal pallor. NECK: No JVD. Carotid upstroke brisk. No bruits bilaterally. LUNGS: Clear to auscultation with unlabored respirations. BACK: No scoliosis or kyphosis. CARDIAC: Regular rate and rhythm with normal S1 and S2. No S3 or S4 noted. No significant rubs, murmurs, thrills, or gallops noted throughout the precordium. PMI is not displaced. There is no parasternal heave. ABDOMEN: Soft, nontender, nondistended. No peritoneal signs present. No hepatosplenomegaly. No abnormal striae. EXTREMITIES: 2+ femoral and 2+ dorsalis pedis pulses. No cyanosis, clubbing, or edema. SKIN: No gross abnormalities. PERTINENT LABORATORY DATA: None. IMPRESSION: 1. 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 2. ? Pulmonary embolism. RECOMMENDATIONS: 1. He is currently on Xarelto. 2. Add lisinopril. 3. LifeVest. 4. Okay from my standpoint to discharge home once LifeVest is placed with close outpatient followup. Job ID: [id number]
[2018-09-12] MEDS ORDERED: Lisinopril 5 MG TAB PO SCH (09:00)
== END 2018-09-11 20:01 | disposition home or self-care (01) | DRG 286 ==
LOC: ERS 14:38 → 2NO 18:31 → EDBD 18:31
PROVIDERS: ADMIT Internal Medicine; ATTEND Internal Medicine
PROC: 4A023N7 Measurement of Cardiac Sampling and Pressure, Left Heart, Percutaneous Approach (ICD-10-PCS; principal; 2018-09-10)
PROC: B2111ZZ Fluoroscopy of Multiple Coronary Arteries using Low Osmolar Contrast (ICD-10-PCS; 2018-09-10)
DX: I42.9 Cardiomyopathy, unspecified (principal); I26.99 Other pulmonary embolism without acute cor pulmonale; I50.21 Acute systolic (congestive) heart failure; I47.1 Supraventricular tachycardia; I24.8 Other forms of acute ischemic heart disease; J44.9 Chronic obstructive pulmonary disease, unspecified; B18.2 Chronic viral hepatitis C; I25.10 Atherosclerotic heart disease of native coronary artery without angina pectoris; G89.29 Other chronic pain; M54.5 Low back pain; I34.0 Nonrheumatic mitral (valve) insufficiency; I07.1 Rheumatic tricuspid insufficiency; M54.30 Sciatica, unspecified side; G25.81 Restless legs syndrome; Z87.891 Personal history of nicotine dependence; Z87.01 Personal history of pneumonia (recurrent); Z79.899 Other long term (current) drug therapy; Z96.652 Presence of left artificial knee joint
CPT/HCPCS: 36415; 71045; 71275; 80048; 80053; 82550; 82553; 83690; 84484; 85025; 85379; 93005; 93306; 93458; 93970; 94760; 96365; 96366; 96372; 99152; C1769; J0153; J1160; J1644; J1650; J1940; J2250; J3010; J7050; Q9966; Q9967

== ENCOUNTER 2019-04-20 12:57 | Outpatient (CLI) | payer MEDICARE ==
--- NOTE | 2019-04-20 14:15 | MRI ---
MRI LUMBAR SPINE NONCONTRAST: HISTORY: Lumbar radiculopathy. Left lower extremity pain. COMPARISON: 07/16/2011. FINDINGS: Mild heterogeneous marrow signal intensity of the lumbar vertebral body likely due to senescent mandel e. Stable intrinsic T1 and T2 hyperintensities at T11, T12, L1 and L4. Multifocal osseous hemangiomas are favored. No significant STIR hyperintensity to suggest vertebral body edema or ligame ntous injury. Spondylolisthesis: 4 mm of retrolisthesis of L1 upon L2. 4 mm of articular developed 2 upon L3. 3.5 mm retrolisthesis L3 upon L4. Appropriate signal intensity of the paraspinal muscles. Redemonstration of a T2 hyperintensity emanat ing from the posterior mid right renal cortex, compatible with a cyst. Conus medullaris terminates at the T12-L1 disc space. T12-L1:No significant loss of disc space height. No significant canal stenosis. Mild bilateral neural foraminal narrowing L1-L2:Desiccation with moderate loss of disc space height. Broad-based disc bulge results in at least mild central canal stenosis. Narrowing of both subarticular zones, with partial obscuration of bilateral traversing L2 nerve roots. When compared to the previous examination, the degree of central canal stenosis has progressed. Moderate bilateral foraminal narrowing L2-L3:Desiccation with moderate to severe loss of disc space height. Broad-based disc bulge, ligament flavum thickening and facet hypertrophy result in moderate central canal stenosis. Moderate to severe right and moderate left foraminal narrowing. When compared to the previous examination, the degree of central canal stenosis has progressed L3-L4:Desiccation with moderate loss of disc space height. Broad-based disc bulge, ligament flavum th ickening and facet result in moderate central canal stenosis. Moderate right and mild to moderate left foraminal narrowing. When compared to the previous examination, there is increased central canal stenosis. L4-L5:No significant loss of disc space height. Broad-based disc bulge, ligament flavum thickening an d facet appears result in moderate central canal stenosis. Moderate right and moderate to severe left foraminal narrowing. The degree of central canal stenosis has progressed when compared to the pr evious examination L5-S1:Broad-based disc bulge without significant mass effect upon the thecal sac. Minimal encroachmen t upon bilateral subarticular zones. No significant obscuration the traversing S1 nerve roots. There is bilateral facet hypertrophy. A small amount of fluid in both facet joints. Moderate to sever e bilateral foraminal narrowing. IMPRESSION: Progression of degenerative changes of the lumbar spine as detailed above. Transcribed Date/Time: 04/20/2019 2:24 PM
== END 2019-04-20 12:58 | disposition home or self-care (01) ==
LOC: SCSMRI 12:57
PROVIDERS: ATTEND Orthopaedic Surgery
DX: M47.26 Other spondylosis with radiculopathy, lumbar region (principal)
CPT/HCPCS: 72148

== ENCOUNTER 2020-03-08 08:52 | Outpatient (CLI) | payer MEDICARE, OTHER ==
[2020-03-08 16:41] LABS: Hemoglobin 13.8 g/dL (14.0-18.0); Mean Corpuscular HGB CONC 33.6 g/dL (32.0-36.0); Mean Corpuscular Hemoglobin 31.5 pg (27.0-31.0); Mean Corpuscular Volume 93.9 fL (78.0-98.0); Mean Platelet Volume 10.1 fL (7.4-10.4); PTT 24.1 sec (22.9-36.1); Platelet Count 181 thou/uL (130-400); Prothrombin Time 12.7 sec (12.0-14.7); RBC Distribution Width 13.1 % (11.5-14.5); Red Blood Cell (RBC) Count 4.37 mill/uL (4.70-6.10); White Blood Cell (WBC) Count 7.4 thou/uL (4.8-10.8)
[2020-03-08 17:14] LABS: Anion Gap 16 mmol/L (10-20); BUN (Urea Nitrogen) 24 mg/dL (8.4-25.7); Calc. Creatinine Clearance 0 mL/min (70-130); Calcium 9.9 mg/dL (7.8-10.44); Carbon Dioxide 24 mmol/L (23-31); Chloride 106 mmol/L (98-107); Estimated GFR-MDRD 69; Glucose 93 mg/dL (83-110); Potassium 4.6 mmol/L (3.5-5.1); Sodium 141 mmol/L (136-145)
[2020-03-09 11:34] LABS: SARS-CoV-2 MS2 Positive; SARS-CoV-2 N Gene Negative; SARS-CoV-2 S Gene Negative; SARS-CoV-2 by NAA Not Detected (NotDetected); SARS-CoV-2 orf1ab Negative
== END 2020-03-08 08:53 | disposition home or self-care (01) ==
LOC: LABBT 08:52
PROVIDERS: ATTEND Internal Medicine Cardiovascular Disease
DX: Z01.818 Encounter for other preprocedural examination (principal); Z11.59 Encounter for screening for other viral diseases; I47.1 Supraventricular tachycardia
CPT/HCPCS: 80048; 85027; 85610; 85730; U0003; 87635; 93005; 93010

== ENCOUNTER 2020-03-11 07:44 | Observation (INO) | payer MEDICARE ==
[2020-03-11] MEDS ORDERED: Heparin 10,000 UNITS/1 ML VIAL ONE (08:08)
[2020-03-11] MEDS ORDERED: PROPOFOL 200 MG/20 ML VIAL ONE (08:56)
[2020-03-11] MEDS ORDERED: PHENYLEPHRINE-NS 100 MCG/ML 10 ML SYRINGE ONE (08:56)
[2020-03-11] MEDS ORDERED: Fentanyl 100 MCG/2 ML VIAL ONE ×2 (09:15→12:12)
[2020-03-11] MEDS ORDERED: Midazolam HCl 2 mg/2 ml Vial ONE (09:15)
[2020-03-11] MEDS ORDERED: Propofol 1,000 MG/100 ML VIAL IV ONE (09:26)
[2020-03-11] MEDS ORDERED: Protamine Sulfate 50 MG/5 ML VIAL ONE (11:21)
[2020-03-11] MEDS ORDERED: Acetaminophen 325 MG TAB PO PRN (12:24)
--- NOTE | 2020-03-11 12:55 | RAD ---
XR Chest 1 View Portable History: Post ablation Comparison: Radiograph August 2018 Findings: No pneumothorax. No cystic or effusion. No pulmonary consolidation. Heart size upper limits of normal. Background lung hyperinflation. No acute osseous abnormality. Bilateral subacromial space narrowing. Impression: 1. No postprocedural pneumothorax. 2. Obstructive pulmonary disease.
--- NOTE | 2020-03-11 12:58 | OP ---
DATE OF PROCEDURE: 03/11/2020 PROCEDURES PERFORMED: 1. Comprehensive electrophysiology testing with 3-dimensional mapping and ablation of atrial tachycardia. 2. Transseptal catheterization. 3. Intracardiac echocardiography. 4. Arterial access with mapping of the aortic root. CLINICAL INDICATION: Near-incessant atrial tachycardia. ASA CLASSIFICATION: III. ANESTHESIA: Total IV anesthesia per Anesthesiology. ADDITIONAL CARDIAC MEDICATIONS: None. ESTIMATED BLOOD LOSS: Less than 5 mL. TOTAL FLUOROSCOPY: Zero. TOTAL ABLATION TIME: 60 seconds. TOTAL HEPARIN: 10,000 units. TOTAL PROTEIN: 40 mg. ACUTE COMPLICATIONS: None apparent. METHODS: After informed consent was obtained, the patient was taken to the EP lab in a fasting state. Both groins were prepped and draped using ultrasound guidance. The right and left femoral veins were accessed on two occasions each. An 8-Bruneian and 11-Bruneian sheaths were placed in the left groin. Two 8-Bruneian sheaths were placed in the right groin. All 8-Bruneian sheaths were placed by long sheaths for catheter stability. An echo probe was placed in left groin, advanced up to the right atrium and right ventricle for imaging. A PentaRay and an ablation catheter were placed in the right groin and advanced up to the right atrium. A 3D mapping was obtained at the right atrium and the coronary sinus. A 20-pole catheter was placed in the left groin and advanced up to the right atrium and the coronary sinus. This was used for mapping. The patient with an incessant A-tach, which was mapped to the septum and the roof of the right atrium. When this was determined, the patient was anticoagulated and transeptal catheterization was performed using an RF enabled transseptal needle. A limited 3D map was obtained to the left atrium, particularly to right superior and right inferior pulmonary veins, and the roof of the left atrium. Based on the activation sequence of the right atrium and the left atrium, it was determined that the non-coronary cusp, needed to also be electrically interrogated. When this was determined, ultrasound guidance was used to gain access to the right femoral artery and 8-Bruneian sheaths were placed into the RFA. This was used to place an ablation catheter from the right femoral artery up to the aortic arch and down into the noncoronary cusp, the right cusp and left cusp. Activation mapping was performed of each of these. When this was determined to not be as early as the right atrial signal, this was withdrawn back to the right atrium. I pulled that off the groin and placed back into the right atrial sheath, which was mapped to the roof of the right atrium. Radiofrequency current was applied immediately terminating the atrial tachycardia, which was then rendered noninducible after an observation period. Catheters were withdrawn. Heparin was reversed. Sheaths were pulled. Hemostasis was achieved with suture closure including the right femoral artery access. The patient was sent to telemetry for 23-hour observation. RESULTS: 1. Baseline intervals: Atrial tachycardia, cycle length was approximately 500 to 520 msec. HV interval 50 msec. 2. Atrial function: The patient was in a near-incessant atrial tachycardia. This was terminated with catheter on manipulation, but was very easily inducible with right atrial burst pacing. This was mapped as described in the mapping section from the right atrium and the left atrium and the noncoronary cusp. Ablation was delivered just in the right atrial roof, which terminated this and rendered the patient noninducible. 3. AV dwayne function: Anterograde block was less than 500 msec when pacing from the right atrium. There was no VA conduction seen. 4. Ablation details: A total of 1 minute (60 seconds) of radiofrequency current was applied exclusively on the roof of the right atrium in the tissue bordered by the right atrial appendage, the His bundle to tricuspid valve in the roof itself. A small noninducible. An open irrigated contact force, sensor enabled, Biosense Yates ablation catheter was used. IMPRESSION: Successful ablation of an atrial tachycardia arising from the right atrial roof. No other arrhythmias were seen. RECOMMENDATION: Aspirin therapy 325 mg daily for 6 weeks. Job ID: [id number]
--- NOTE | 2020-03-11 16:01 | PDOC.BPN ---
- Brief Progress Note Admitted for 23 hour observation post focal atrial tachycardia ablation ( 60seconds ablation time) for monitoring of rhythm and for any bleeding complications. 4 venous sheaths and [address] for procedure. If no rhythm issues are seen overnight and groin sites are stable, I anticipate him being discharged home in the AM. Feel free to contact me with any EP concerns if they arise. Thank you.
[2020-03-11 16:09] VITALS: BMI 22.1
--- NOTE | 2020-03-11 17:28 | PDOC.HHP ---
Hospitalist HPI - History of Present Illness Arrhythmia History of Present Illness: 85 yo male with hx of atrial arrhythmia. He has been followed by Dr. Martínez and ultimately seen by EP. Today he had a focal atrial tachycardia ablation. He required several sheaths for a long EP study with a relatively short ablation. He is observed to monitor rhythm and to monitor the sheath wounds. He currently feels very well and has no complaints. Hospitalist ROS - Review of Systems Respiratory: denies: cough, shortness of breath Cardiovascular: denies: chest pain, palpitations All other systems reviewed; all pertinent +/- noted in HPI/Subj - Medication Medications: Digoxin 0.125 mg po q day Coreg 3.125 mg po bid. Meloxicam 7.5mg po q day. Hospitalist History - Past Medical History Gastrointestinal: reports: Other (Hepatitis C, s/p treatment.) Musculoskeletal: reports: Osteoarthritis - Past Surgical History Past Surgical History: reports: Total Knee Replacement, Other (Carpal Tunnel release.) - Family History Other Family History: Mother lived to 102, Father to 95, sibs to 90's. - Social History Smoking Status: Never smoker Alcohol: reports: Occassional Drugs: reports: none Living Situation: With Family Other Social History: Full code. - Exam General Appearance: NAD, awake alert Heart: RRR, no murmur, no gallops, no rubs, normal peripheral pulses Respiratory: CTAB, no wheezes, no rales, no ronchi, normal chest expansion, no tachypnea, normal percussion Gastrointestinal: soft, non-tender, non-distended, normal bowel sounds, no palpable masses, no hepatomegaly, no splenomegaly, no bruit Extremities: no cyanosis, no clubbing, no edema Skin: normal turgor Neurological: cranial nerve grossly intact, normal sensation to touch, no weakness, no focal deficits, no new deficit Musculoskeletal: normal tone, normal strength, no muscle wasting Psychiatric: normal affect, normal behavior, A&O x 3 Hospitalist H&P A/P - Problem (1) Atrial tachycardia Code(s): I47.1 - SUPRAVENTRICULAR TACHYCARDIA Status: Acute - Plan Plan: S/P ablation. Required several sheaths, long study with ultimately a short ablation. Monitor on telemetry. Check blood counts in am. If groin sites and counts are good and he has not arrhythmias, anticipate DC in am.
[2020-03-11] MEDS ORDERED: Zolpidem Tartrate 5 MG TAB PO PRN (17:55)
[2020-03-11] MEDS ORDERED: Melatonin 3 MG TAB PO PRN (17:55)
[2020-03-11] MEDS: Carvedilol 3.125 MG TAB PO SCH (20:46)
[2020-03-11] MEDS: Gabapentin 300 MG CAP PO SCH (20:46)
[2020-03-12 04:34] LABS: #Eosinphils 0.3 thou/uL (0.0-0.7); #Lymphocytes 1.8 thou/uL (1.20-3.40); #Monocytes 0.9 thou/uL (0.11-0.59); #Neutrophils 5.4 thou/uL (1.40-6.50); %Basophils 0.2 % (0.0-1.0); %Eosinophils 3.5 % (0.0-10.0); %Lymphocytes 21.3 % (21.0-51.0); %Monocytes 10.9 % (0.0-10.0); %Neutrophils 64.1 % (42.0-75.0); Mean Corpuscular Hemoglobin 31.1 pg (27.0-31.0); Mean Corpuscular Volume 94.4 fL (78.0-98.0); Mean Platelet Volume 9.3 fL (7.4-10.4); Platelet Count 159 thou/uL (130-400); RBC Distribution Width 12.9 % (11.5-14.5); Red Blood Cell (RBC) Count 3.86 mill/uL (4.70-6.10); White Blood Cell (WBC) Count 8.5 thou/uL (4.8-10.8)
[2020-03-12] MEDS ORDERED: Digoxin 0.125 MG TAB PO SCH (09:00)
[2020-03-12] MEDS ORDERED: Meloxicam 7.5 MG TAB PO SCH (09:00)
[2020-03-12] MEDS: Carvedilol 3.125 MG TAB PO SCH (09:13)
[2020-03-12] MEDS: Gabapentin 300 MG CAP PO SCH (09:13)
--- NOTE | 2020-03-12 10:47 | PDOC.EP ---
- Subjective Date: 03/12/20 Time: 10:45 Interval History: post ablation follow up. He feels well with no heart racing or palpitations. He no longer has tenderness /pain at his B/L groin access sites. No bleeding issues overnight. - Review of Systems Constitutional: denies: chills, fever, malaise, sweats, weakness Respiratory: denies: cough, dry, hemoptysis, pleuritic pain, shortness of breath , SOB with excertion, sputum, wheezing Cardiology: denies: chest pain, edema, heart racing, light headedness, palpitations, pleuritic pain Gastrointestinal: denies: abdominal pain, constipation Musculoskeletal: denies: unstable gait, falls, neck pain - Objective Allergies/Adverse Reactions: Allergies Allergy/AdvReac Type Severity Reaction Status Date / Time No Known Allergies Allergy Verified 03/07/20 14:52 Current Medications Acetaminophen (Tylenol) 650 mg PO Q4H PRN PRN Reason: Headache/Fever/Mild Pain (1-3) Last Admin: 03/11/20 20:47 Dose: 650 mg Carvedilol (Coreg) 3.125 mg PO BID [facility] Last Admin: 03/12/20 09:13 Dose: 3.125 mg Gabapentin (Neurontin) 300 mg PO BID [facility] Last Admin: 03/12/20 09:13 Dose: 300 mg Melatonin (Melatonin) 3 mg PO HSPRN PRN PRN Reason: Insomnia Last Admin: 03/11/20 20:47 Dose: 3 mg Meloxicam (Mobic) 7.5 mg PO DAILY [facility] Last Admin: 03/12/20 09:42 Dose: 7.5 mg Zolpidem Tartrate (Ambien) 5 mg PO HSPRN PRN PRN Reason: Insomnia Vital Signs & Weight: Vital Signs Temp Pulse Resp BP BP Pulse Ox 03/12/20 08:13 97.2 F L 79 14 126/75 97 03/12/20 04:56 98.5 F 70 18 97/53 L 94 L Weight 146 lb I/O: I/O 03/11/20 03/12/20 03/13/20 06:59 06:59 06:59 Intake Total 1120 Output Total 500 Balance 620 - Physical Exam General: alert & oriented x3, appears well, no apparent distress, speech clear, affect appropriate HEENT: mucus membranes moist, normocephaly Neck: supple neck, no JVD/HJR, no lymphadenopathy Cardiology: regular rate and rhythm Lungs: clear to auscultation, no wheeze, rales, rhonchi Neurology: cranial nerve 2-12 intact, grossly intact, no lateralizing findings Extremities: dry, strong pulses, warm Skin: groin sites stable - Labs Result Diagrams: 03/12/20 04:18 - EKG Interpretation EKG Method: Telemetry EKG shows: Sinus rhythm - Assessment/Plan Assessment/Plan: 1. Atrial tachycardia, focal -s/p RFA to the RA septum. Not inducible post ablation. SR overnight - B/L groin sites stable Digoxin stopped. No further need for AV dwayne blocking agents from an EP perspective. Will defer coreg to cardiology. OK for DC by EP. Will arrange for telemed follow up in 6 weeks.
[2020-03-12 11:28] VITALS: BP 133/81; TEMP 97.3
--- NOTE | 2020-03-13 08:26 | DIS ---
DATE OF ADMISSION: 03/11/2020 DATE OF DISCHARGE: 03/12/2020 DISCHARGE DIAGNOSES: 1. Focal atrial tachycardia. 2. Arthritis. HISTORY OF PRESENT ILLNESS: The patient is an 85-year-old male with a history of the focal atrial tachycardia, who presented to the hospital for an ablation procedure. He underwent comprehensive EP testing with three-dimensional mapping and ablation of the focal atrial tachycardia, requiring a transseptal catheterization, intracardiac echo, and arterial access with mapping of the aortic root. The patient's ablation appeared to be successful, but required a prolonged study and several sheaths. Therefore, it was felt that the patient was best observed overnight. HOSPITAL COURSE: The patient was placed in observation on telemetry, did extremely well. He had no significant events on telemetry. He had no complications regarding his puncture sites and felt completely well and was felt to be stable for discharge. PHYSICAL EXAMINATION: VITAL SIGNS: His temperature is 97.3, pulse 72, respirations 12, BP 133/81, and O2 saturation 98% on room air. GENERAL: He is awake and alert. HEART: Regular with no murmurs. LUNGS: Clear bilaterally. ABDOMEN: Benign. EXTREMITIES: No edema. DISPOSITION: The patient is discharged to home. MEDICATIONS: He will be on, 1. Coreg 3.125 one p.o. b.i.d. 2. Meloxicam 7.5 mg p.o. daily. DIET: He will have a heart healthy diet. ACTIVITY: As tolerated. FOLLOWUP: He will follow up with Dr. Rae and Dr. Drew Franco and he can return to the hospital anytime he has the need to do so. Job ID: [id number]
== END 2020-03-12 11:36 | disposition home or self-care (01) ==
LOC: SDC 07:44 → SURG A 12:07 → 2NO 15:52
PROVIDERS: ADMIT Internal Medicine; ATTEND Internal Medicine
PROC: 4A023FZ Measurement of Cardiac Rhythm, Percutaneous Approach (ICD-10-PCS; principal; 2020-03-11)
PROC: 4A0234Z Measurement of Cardiac Electrical Activity, Percutaneous Approach (ICD-10-PCS; 2020-03-11)
PROC: 02583ZZ Destruction of Conduction Mechanism, Percutaneous Approach (ICD-10-PCS; 2020-03-11)
PROC: 02K83ZZ Map Conduction Mechanism, Percutaneous Approach (ICD-10-PCS; 2020-03-11)
DX: I47.1 Supraventricular tachycardia (principal); I25.5 Ischemic cardiomyopathy; J44.9 Chronic obstructive pulmonary disease, unspecified; I26.09 Other pulmonary embolism with acute cor pulmonale; Z79.01 Long term (current) use of anticoagulants; Z79.899 Other long term (current) drug therapy
CPT/HCPCS: 71045; 76942; 85025; 85347 ×2; 93005; 93613; 93653; 93662; C1759; C1760; C1884; 36415; 93010; C1732; G0378; J1644; J2250; J2704; J2720; J3010

== ENCOUNTER 2021-01-27 14:44 | Outpatient (CLI) | payer MEDICARE | END 2021-01-27 14:45 | disposition home or self-care (01) | LOC: BICMRI 14:44 | PROVIDERS: ATTEND Orthopaedic Surgery | DX: M47.26 Other spondylosis with radiculopathy, lumbar region (principal); M47.16 Other spondylosis with myelopathy, lumbar region | CPT/HCPCS: 72148 ==

== ENCOUNTER 2021-02-20 11:28 | Outpatient (CLI) | payer MEDICARE | END 2021-02-20 11:29 | disposition home or self-care (01) | LOC: RAD 11:28 | PROVIDERS: ATTEND Orthopaedic Surgery | DX: Z01.818 Encounter for other preprocedural examination (principal); M47.22 Other spondylosis with radiculopathy, cervical region | CPT/HCPCS: 71046 ==

== ENCOUNTER 2022-02-05 13:07 | Inpatient (IN) | payer MEDICARE ==
[2022-02-05 15:09] LABS: SARS-CoV-2 NAA Rapid Test Not Detected (NotDetected)
[2022-02-05] MEDS ORDERED: HYDROmorphone 2 MG/ML VIAL ONE (18:29)
[2022-02-05] MEDS ORDERED: Neomycin-Polymyxin 1 ML AMP ONE (18:39)
[2022-02-05] MEDS ORDERED: Bupivacaine PF 0.5% 30 ML VIAL ONE (18:39)
[2022-02-05] MEDS ORDERED: Bacitracin Zinc Ointment 30 gm TUBE ONE (18:39)
[2022-02-05] MEDS ORDERED: fentaNYL Citrate/PF 100 MCG/2 ML SYRINGE ONE (19:01)
[2022-02-05] MEDS ORDERED: PHENYLEPHRINE-NS 100 MCG/ML 10 ML SYRINGE ONE (19:11)
[2022-02-05] MEDS ORDERED: ePHEDrine 50 MG/ML VIAL ONE (19:11)
[2022-02-05] MEDS ORDERED: Lidocaine 1% PF 5 ML VIAL ONE (19:11)
[2022-02-05] MEDS ORDERED: PROPOFOL 200 MG/20 ML VIAL ONE (19:11)
[2022-02-05] MEDS ORDERED: Dexamethasone 20 MG/5 ML VIAL ONE (19:11)
[2022-02-05] MEDS ORDERED: Ondansetron PF 4 MG/2 ML Vial ONE (19:11)
[2022-02-05] MEDS ORDERED: Promethazine HCl 25 MG/ML VIAL IM PRN ×2 (19:52→20:44)
[2022-02-05] MEDS ORDERED: HYDROmorphone 2 MG/ML VIAL SLOW IVP PRN (19:52)
[2022-02-05] MEDS ORDERED: Ondansetron HCl/PF 4 MG/2 ML Vial IVP PRN (19:52)
[2022-02-05] MEDS ORDERED: Meperidine HCl/PF 25 MG/ML VIAL SLOW IVP PRN (19:52)
[2022-02-05] MEDS ORDERED: Promethazine HCl 25 MG/ML VIAL IVPB PRN (19:52)
[2022-02-05] MEDS ORDERED: traMADol HCl 50 MG TAB PO PRN (20:44)
[2022-02-05] MEDS ORDERED: Fentanyl 100 MCG/2 ML VIAL SLOW IVP PRN (20:44)
[2022-02-05] MEDS ORDERED: Ondansetron PF 4 MG/2 ML Vial SLOW IVP PRN (20:44)
[2022-02-05] MEDS ORDERED: Bisacodyl 10 MG SUPP PR PRN (20:44)
[2022-02-05] MEDS ORDERED: Communication Order-Pharmacy FS SCH (20:45)
[2022-02-05] MEDS ORDERED: Meperidine HCl/PF 25 MG/ML VIAL IM PRN (20:53)
[2022-02-05] MEDS: Aspirin 81 mg Enteric Coated Tablet PO SCH ×2 (21:43→21:49)
[2022-02-05] MEDS ORDERED: TETANUS AND DIPHTHERIA TOX/PF 0.5 ML DISP.SYRIN IM SCH (22:00)
[2022-02-05] MEDS: Ketorolac Tromethamine 30 MG/ML VIAL IVP SCH (23:08)
[2022-02-05 23:12] VITALS: BMI 23.8
[2022-02-06] MEDS: HYDROcodone/Acetaminophen 5/325 mg Tablet PO PRN (04:07)
[2022-02-06 05:37] LABS: #Lymphocytes 0.4 thou/uL (1.20-3.40); #Monocytes 0.2 thou/uL (0.11-0.59); #Neutrophils 11.2 thou/uL (1.40-6.50); %Lymphocytes 3.5 % (21.0-51.0); %Monocytes 1.5 % (0.0-10.0); Hemoglobin 12.1 g/dL (14.0-18.0); Mean Corpuscular HGB CONC 32.9 g/dL (32.0-36.0); Mean Corpuscular Hemoglobin 31.2 pg (27.0-31.0); Mean Corpuscular Volume 94.8 fL (78.0-98.0); Mean Platelet Volume 9.3 fL (7.4-10.4); Platelet Count 188 thou/uL (130-400); RBC Distribution Width 12.8 % (11.5-14.5); Red Blood Cell (RBC) Count 3.87 mill/uL (4.70-6.10); White Blood Cell (WBC) Count 11.8 thou/uL (4.8-10.8)
[2022-02-06 06:01] LABS: ALT (SGPT) 20 U/L (8-55); AST (SGOT) 16 U/L (5-34); Albumin 3.7 g/dL (3.4-4.8); Alkaline Phosphatase 42 U/L (40-110); Anion Gap 16 mmol/L (10-20); BUN (Urea Nitrogen) 35 mg/dL (8.4-25.7); Bilirubin, Total 0.5 mg/dL (0.2-1.2); Calc. Creatinine Clearance 39 mL/min (70-130); Calcium 9.1 mg/dL (7.8-10.44); Carbon Dioxide 21 mmol/L (23-31); Chloride 104 mmol/L (98-107); Globulin 2.8 g/dL (2.4-3.5); Glucose 241 mg/dL (83-110); Potassium 4.5 mmol/L (3.5-5.1); Protein, Total 6.5 g/dL (5.8-8.1); Sodium 136 mmol/L (136-145)
[2022-02-06] MEDS: Ketorolac Tromethamine 30 MG/ML VIAL IVP SCH ×3 (06:46→17:09)
[2022-02-06] MEDS ORDERED: Dextrose 50% Abboject 50 ML SYRINGE SLOW IVP PRN (07:17)
[2022-02-06] MEDS ORDERED: HumaLOG 300 UNITS/3 ML VIAL SC PRN (07:17)
[2022-02-06] MEDS ORDERED: Dextrose 5% in Water 1,000 ML IV PRN (07:17)
[2022-02-06 07:36] LABS: Hemoglobin A1c 5.9 % (4.0-6.0)
[2022-02-06] MEDS ORDERED: VANCOMYCIN 1.25 GM/250 ML BAG 1.25 GM in Premix Bag 1 BAG IVPB SCH (08:00)
[2022-02-06] MEDS: Carvedilol 3.125 MG TAB PO SCH ×2 (08:09→21:53)
[2022-02-06] MEDS: Gabapentin 300 MG CAP PO SCH ×2 (08:09→21:53)
[2022-02-06] MEDS: Aspirin 81 mg Enteric Coated Tablet PO SCH ×2 (08:09→21:53)
[2022-02-06] MEDS: Sodium Chloride 0.9% 1,000 ML IV SCH (08:10)
[2022-02-06] MEDS: Morphine 4 MG/ML VIAL SLOW IVP PRN (10:39)
[2022-02-07] MEDS: Ketorolac Tromethamine 30 MG/ML VIAL IVP SCH (00:42)
[2022-02-07] MEDS: Sodium Chloride 0.9% 1,000 ML IV SCH (00:43)
[2022-02-07 07:17] LABS: #Lymphocytes 1.1 thou/uL (1.20-3.40); #Monocytes 1.2 thou/uL (0.11-0.59); #Neutrophils 10.8 thou/uL (1.40-6.50); %Basophils 0.2 % (0.0-1.0); %Eosinophils 0.4 % (0.0-10.0); %Lymphocytes 8.6 % (21.0-51.0); %Monocytes 8.8 % (0.0-10.0); Hemoglobin 12.7 g/dL (14.0-18.0); Mean Corpuscular HGB CONC 32.3 g/dL (32.0-36.0); Mean Corpuscular Hemoglobin 30.9 pg (27.0-31.0); Mean Corpuscular Volume 95.7 fL (78.0-98.0); Mean Platelet Volume 9.4 fL (7.4-10.4); Platelet Count 210 thou/uL (130-400); RBC Distribution Width 13.1 % (11.5-14.5); Red Blood Cell (RBC) Count 4.11 mill/uL (4.70-6.10); White Blood Cell (WBC) Count 13.1 thou/uL (4.8-10.8)
[2022-02-07 07:28] LABS: Vancomycin, Trough 9.2 ug/mL
[2022-02-07 07:31] LABS: ALT (SGPT) 22 U/L (8-55); AST (SGOT) 18 U/L (5-34); Albumin 3.7 g/dL (3.4-4.8); Alkaline Phosphatase 40 U/L (40-110); Anion Gap 14 mmol/L (10-20); BUN (Urea Nitrogen) 31 mg/dL (8.4-25.7); Bilirubin, Total 0.5 mg/dL (0.2-1.2); Calc. Creatinine Clearance 61 mL/min (70-130); Calcium 8.7 mg/dL (7.8-10.44); Carbon Dioxide 21 mmol/L (23-31); Chloride 108 mmol/L (98-107); Estimated GFR 83; Globulin 2.8 g/dL (2.4-3.5); Glucose 85 mg/dL (83-110); Potassium 4.8 mmol/L (3.5-5.1); Protein, Total 6.5 g/dL (5.8-8.1); Sodium 138 mmol/L (136-145)
[2022-02-07] MEDS: Carvedilol 3.125 MG TAB PO SCH ×2 (08:33→20:56)
[2022-02-07] MEDS: Gabapentin 300 MG CAP PO SCH ×2 (08:33→20:56)
[2022-02-07] MEDS: Aspirin 81 mg Enteric Coated Tablet PO SCH ×2 (08:33→20:56)
[2022-02-07] MEDS: Vancomycin 1.5 GRAM/300 ML BAG 1.5 GM in Premix Bag 1 BAG IVPB SCH (08:34)
[2022-02-07] MEDS ORDERED: Vancomycin HCl 1.5 GM in Sodium Chloride 0.9% 250 ML 300 ML IVPB SCH (16:15)
[2022-02-07] MEDS ORDERED: Vancomycin 1.5 GM in Premix Bag 1 BAG IVPB SCH (16:15)
[2022-02-07] MEDS: Morphine 4 MG/ML VIAL SLOW IVP PRN (16:16)
[2022-02-07 16:41] LABS: #Eosinphils 0.2 thou/uL (0.0-0.7); #Lymphocytes 1.5 thou/uL (1.20-3.40); #Monocytes 1.3 thou/uL (0.11-0.59); #Neutrophils 10.6 thou/uL (1.40-6.50); %Basophils 0.1 % (0.0-1.0); %Eosinophils 1.1 % (0.0-10.0); %Lymphocytes 11.2 % (21.0-51.0); %Monocytes 9.7 % (0.0-10.0); %Neutrophils 77.9 % (42.0-75.0); Hemoglobin 12.6 g/dL (14.0-18.0); Mean Corpuscular HGB CONC 32.5 g/dL (32.0-36.0); Mean Corpuscular Volume 95.4 fL (78.0-98.0); Mean Platelet Volume 9.2 fL (7.4-10.4); Platelet Count 212 thou/uL (130-400); RBC Distribution Width 13.2 % (11.5-14.5); Red Blood Cell (RBC) Count 4.07 mill/uL (4.70-6.10); White Blood Cell (WBC) Count 13.6 thou/uL (4.8-10.8)
[2022-02-08 09:31] LABS: #Eosinphils 0.2 thou/uL (0.0-0.7); #Lymphocytes 1.5 thou/uL (1.20-3.40); #Monocytes 1.1 thou/uL (0.11-0.59); #Neutrophils 7.7 thou/uL (1.40-6.50); %Basophils 0.3 % (0.0-1.0); %Lymphocytes 13.9 % (21.0-51.0); %Monocytes 10.4 % (0.0-10.0); %Neutrophils 73.5 % (42.0-75.0); Hemoglobin 12.6 g/dL (14.0-18.0); Mean Corpuscular Hemoglobin 30.4 pg (27.0-31.0); Mean Platelet Volume 9.2 fL (7.4-10.4); Platelet Count 209 thou/uL (130-400); Red Blood Cell (RBC) Count 4.16 mill/uL (4.70-6.10); White Blood Cell (WBC) Count 10.5 thou/uL (4.8-10.8)
[2022-02-08] MEDS: Vancomycin 1.5 GRAM/300 ML BAG 1.5 GM in Premix Bag 1 BAG IVPB SCH (09:31)
[2022-02-08] MEDS: Carvedilol 3.125 MG TAB PO SCH (09:33)
[2022-02-08] MEDS: Aspirin 81 mg Enteric Coated Tablet PO SCH (09:34)
[2022-02-08] MEDS: Gabapentin 300 MG CAP PO SCH (09:34)
[2022-02-08] MEDS ORDERED: Lorazepam 2 MG/ML VIAL SLOW IVP SCH (11:30)
[2022-02-08] MEDS: Morphine 4 MG/ML VIAL SLOW IVP PRN (15:49)
[2022-02-08] MEDS: HYDROcodone/Acetaminophen 5/325 mg Tablet PO PRN (18:02)
[2022-02-08] MEDS ORDERED: Rifampin 300 MG CAP PO SCH (22:00)
[2022-02-08 22:15] VITALS: BP 124/71; TEMP 98.1
== END 2022-02-08 20:25 | disposition home or self-care (01) | DRG 857 ==
LOC: SDC 13:07 → SURG B 22:53
PROVIDERS: ADMIT Orthopaedic Surgery Hand Surgery; ATTEND Orthopaedic Surgery Hand Surgery
PROC: 0R9V0ZZ Drainage of Left Metacarpophalangeal Joint, Open Approach (ICD-10-PCS; principal; 2022-02-05)
PROC: 0LT80ZZ Resection of Left Hand Tendon, Open Approach (ICD-10-PCS; 2022-02-05)
DX: T81.40XA Infection following a procedure, unspecified, initial encounter (principal); M00.9 Pyogenic arthritis, unspecified; L02.512 Cutaneous abscess of left hand; I96 Gangrene, not elsewhere classified; N17.9 Acute kidney failure, unspecified; M65.142 Other infective (teno)synovitis, left hand; M65.042 Abscess of tendon sheath, left hand; I10 Essential (primary) hypertension; Z96.652 Presence of left artificial knee joint; I48.0 Paroxysmal atrial fibrillation; Z79.899 Other long term (current) drug therapy; Y83.8 Other surgical procedures as the cause of abnormal reaction of the patient, or of later complication, without mention of misadventure at the time of the procedure
CPT/HCPCS: 36415; 36416; 80053; 80202; 83036; 85025; 87070; 87077; 87186; 87205; 97139; J1100; J1170; J1815; J1885; J2060; J2270; J2405; J2704; J3370; J3490; J7050; S0020; U0002

== ENCOUNTER 2022-02-13 05:49 | Day surgery (SDC) | payer MEDICARE ==
[2022-02-09 13:06] VITALS: BMI 23.2
[2022-02-13] MEDS ORDERED: Bupivacaine PF 0.5% 30 ML VIAL ONE (06:11)
[2022-02-13] MEDS ORDERED: Bacitracin Zinc Ointment 30 gm TUBE ONE (06:11)
[2022-02-13] MEDS ORDERED: Neomycin-Polymyxin 1 ML AMP ONE (06:11)
[2022-02-13] MEDS ORDERED: Phenylephrine 10 MG/ML VIAL ONE (06:52)
[2022-02-13] MEDS ORDERED: fentaNYL Citrate/PF 100 MCG/2 ML SYRINGE ONE (06:52)
[2022-02-13] MEDS ORDERED: CEFAZOLIN 2 GM VIAL ONE (06:55)
[2022-02-13] MEDS ORDERED: Sodium Chloride 0.9% 100 ML ONE (06:55)
[2022-02-13] MEDS ORDERED: PROPOFOL 200 MG/20 ML VIAL ONE (07:00)
[2022-02-13] MEDS ORDERED: Lidocaine 1% PF 5 ML VIAL ONE (07:00)
== END 2022-02-13 09:16 | disposition home or self-care (01) ==
LOC: SDC 05:49
PROVIDERS: ATTEND Orthopaedic Surgery Hand Surgery
PROC: 0RBV0ZZ Excision of Left Metacarpophalangeal Joint, Open Approach (ICD-10-PCS; principal; 2022-02-13)
DX: S63.657A Sprain of metacarpophalangeal joint of left little finger, initial encounter (principal); S61.412A Laceration without foreign body of left hand, initial encounter; M19.90 Unspecified osteoarthritis, unspecified site; Z79.1 Long term (current) use of non-steroidal anti-inflammatories (NSAID); Z79.899 Other long term (current) drug therapy; W26.8XXA Contact with other sharp object(s), not elsewhere classified, initial encounter
CPT/HCPCS: J0690; J2370; J2704; J3490; S0020

== ENCOUNTER 2022-03-02 14:32 | Outpatient (CLI) | payer MEDICARE | END 2022-03-02 14:33 | disposition home or self-care (01) | LOC: SCSMRI 14:32 | PROVIDERS: ATTEND Anesthesiology | DX: M47.22 Other spondylosis with radiculopathy, cervical region (principal); M47.813 Spondylosis without myelopathy or radiculopathy, cervicothoracic region | CPT/HCPCS: 72141 ==

== ENCOUNTER 2022-03-21 15:21 | Outpatient (CLI) | payer MEDICARE ==
[2022-03-21 16:21] LABS: #Basophils 0.1 10x3/uL (0.0-0.2); #Eosinphils 0.5 10x3/uL (0.0-0.5); #Monocytes 0.9 10x3/uL (0.0-1.1); #Neutrophils 3.8 10x3/uL (1.5-8.4); %Basophils 1.2 % (0.0-2.0); %Lymphocytes 27.6 % (18.0-47.0); %Monocytes 11.9 % (0.0-10.0); %Neutrophils 51.9 % (40.0-75.0); Hemoglobin 10.9 g/dL (13.5-17.5); Mean Corpuscular HGB CONC 32.6 g/dL (32.0-36.0); Mean Corpuscular Hemoglobin 29.5 pg (27.0-33.0); Mean Corpuscular Volume 90.3 fl (81.2-95.1); Mean Platelet Volume 11.8 fl (7.4-10.4); Platelet Count 183 10x3/uL (150-450); White Blood Cell (WBC) Count 7.3 10x3/uL (3.5-10.5)
== END 2022-03-21 15:22 | disposition home or self-care (01) ==
LOC: LABBT 15:21
PROVIDERS: ATTEND Orthopaedic Surgery Hand Surgery
DX: Z01.812 Encounter for preprocedural laboratory examination (principal); G56.01 Carpal tunnel syndrome, right upper limb; Z20.822 Contact with and (suspected) exposure to COVID-19
CPT/HCPCS: 85025; 87811

== ENCOUNTER 2022-03-26 11:21 | Day surgery (SDC) | payer MEDICARE ==
[2022-03-22 12:57] VITALS: BMI 23.6
[2022-03-26] MEDS ORDERED: fentaNYL Citrate/PF 100 MCG/2 ML SYRINGE ONE (11:57)
[2022-03-26] MEDS ORDERED: CEFAZOLIN 2 GM VIAL ONE (13:22)
[2022-03-26] MEDS ORDERED: Sodium Chloride 0.9% 100 ML ONE (13:22)
[2022-03-26 13:25] LABS: Anion Gap 15 mmol/L (10-20); BUN (Urea Nitrogen) 23 mg/dL (8.4-25.7); Calc. Creatinine Clearance 51 mL/min (70-130); Calcium 9.2 mg/dL (7.8-10.44); Carbon Dioxide 22 mmol/L (23-31); Chloride 108 mmol/L (98-107); Estimated GFR 70; Glucose 96 mg/dL (83-110); Potassium 4.7 mmol/L (3.5-5.1); Sodium 140 mmol/L (136-145)
[2022-03-26] MEDS ORDERED: Lidocaine 1% PF 5 ML VIAL ONE (13:38)
[2022-03-26] MEDS ORDERED: Phenylephrine 10 MG/ML VIAL ONE (13:38)
[2022-03-26] MEDS ORDERED: PROPOFOL 200 MG/20 ML VIAL ONE (13:38)
[2022-03-26] MEDS ORDERED: ePHEDrine 50 MG/ML VIAL ONE (13:38)
[2022-03-26] MEDS ORDERED: Bacitracin Zinc Ointment 30 gm TUBE ONE (13:52)
[2022-03-26] MEDS ORDERED: Thrombin 5000 UNITS/5 ML VIAL ONE (13:52)
[2022-03-26] MEDS ORDERED: Bupivacaine PF 0.5% 30 ML VIAL ONE (13:52)
[2022-03-26] MEDS ORDERED: Betamet Acet/Betamet Na Ph 30 MG/5 ML VIAL ONE (14:28)
== END 2022-03-26 16:31 | disposition home or self-care (01) ==
LOC: SDC 11:21
PROVIDERS: ATTEND Orthopaedic Surgery Hand Surgery
PROC: 01N50ZZ Release Median Nerve, Open Approach (ICD-10-PCS; principal; 2022-03-26)
PROC: 01U50JZ Supplement Median Nerve with Synthetic Substitute, Open Approach (ICD-10-PCS; 2022-03-26)
DX: G56.01 Carpal tunnel syndrome, right upper limb (principal); G56.11 Other lesions of median nerve, right upper limb; M19.90 Unspecified osteoarthritis, unspecified site; G89.29 Other chronic pain; M54.9 Dorsalgia, unspecified; Z79.01 Long term (current) use of anticoagulants; Z79.899 Other long term (current) drug therapy; Z96.651 Presence of right artificial knee joint; Z98.890 Other specified postprocedural states
CPT/HCPCS: 64721; 64999; 80048; 93005; C9352; 93010; J0690; J0702; J2370; J2704; J3490; S0020

== ENCOUNTER 2024-08-10 15:24 | Outpatient (CLI) | payer MEDICARE | END 2024-08-10 15:25 | disposition home or self-care (01) | LOC: BICRAD 15:24 | PROVIDERS: ATTEND Family Medicine | DX: R50.9 Fever, unspecified (principal) | CPT/HCPCS: 0241U; 36415; 71046; 80053; 81001; 85025; 87040; 87086 ==